=== PATIENT | female | born 1930 | race Caucasian/White ===

== ENCOUNTER 2016-12-02 18:58 | Emergency (ER) | payer OTHER ==
[2016-12-02 19:27] VITALS: BP 174/97; PULSE 70; RESP 16; TEMP 97.9; O2SAT 93
--- NOTE | 2016-12-02 20:14 | EDPHY ---
H & P Time Seen by Provider: 12/02/16 19:41 HPI/ROS: CHIEF COMPLAINT: Right lateral ankle pain HISTORY OF PRESENT ILLNESS: 86-year-old female arrives via private vehicle complaining of acute right lateral ankle pain after she rolled her foot 3 days ago. She is able to bear weight albeit with some pain. Reproducible pain with palpation weight-bearing No instability. Positive ecchymosis. No direct trauma or fall. PHYSICAL EXAM (Prior to examination, patient consented to physical exam, hands were washed and my usual and customary physical exam procedures followed) 1) GENERAL: Well-developed, well-nourished, alert and oriented. Appears to be in no acute distress. 2) HEAD: Normocephalic 3) HEENT: Pupils equal, round, reactive to light bilaterally. 4) LUNGS: Breathing comfortably. 5) MUSCULOSKELETAL: Tender to palpation lateral malleolus with ecchymosis noted at same location. proximal tibia and fibula nontender .5th MT nontender negative Wheeler test, compartments soft 6) SKIN: ecchymosis 7) VASCULAR: DP,PT pulses and cap refill present and brisk DIFFERENTIAL DIAGNOSIS: in no particular order including but not limited to fracture, sprain, compartment syndrome Xray of the right ankle interpreted by myself: no definitive acute osseous abnormality Procedure: Splint A [place] boot splint was applied by ER certified pharmacy technician. After application of the splint I returned and re-examined the patient. The splint was adequately immobilizing the joint and distal to the splint the patient's circulation and sensation were intact. Patient shows no signs of compartment syndrome. Was given orthopedic precautions. Smoking Status: Never smoked Constitutional: Initial Vital Signs Temperature (C) 36.6 C 12/02/16 19:24 Heart Rate 70 12/02/16 19:24 Respiratory Rate 16 12/02/16 19:24 Blood Pressure 174/97 H 12/02/16 19:24 O2 Sat (%) 93 12/02/16 19:24 O2 Delivery Mode Room Air Allergies/Adverse Reactions: Niacin Preparations Allergy (Intermediate, Verified 05/10/15 06:29) Rash Penicillins Allergy (Intermediate, Verified 05/10/15 06:29) Rash codeine phosphate [From Codeine Phosphate Soluble] Allergy (Mild, Verified 05/10 06:29) NAUSEA Sulfa (Sulfonamide Antibiotics) Allergy (Mild, Verified 05/10/15 06:29) SPACEY Home Medications: Medication Instructions Recorded Felodipine [Felodipine Er] 5 mg PO DAILY 12/30/10 Metformin HCl 500 mg PO DAILY06 05/16/11 MDM/Departure - Depart Disposition: Home, Routine, Self-Care Clinical Impression: Right ankle sprain Qualifiers: Encounter type: initial encounter Involved ligament of ankle: unspecified ligament Qualified Code(s): S93.401A - Sprain of unspecified ligament of right ankle, initial encounter Condition: Good Instructions: Ankle Sprain (ED) Additional Instructions: Return to the ER immediately if you experience discoloration, have worsening pain, numbness, tingling, or any other symptoms that concern you. If you received x-rays in the emergency department today, be advised, that ligamentous , tendon, muscular, and other non-bony injury cannot be fully ruled out. Try to keep your affected extremity elevated above the level of your chest, and keep cold packs on the affected area, for the next 48 hours. Referrals: Omari Sandoval MD [Medical Doctor] - 2-3 days, call for appt.
== END 2016-12-02 21:02 | disposition home or self-care (01) ==
DX: S93.401A Sprain of unspecified ligament of right ankle, initial encounter (principal); X58.XXXA Exposure to other specified factors, initial encounter

== ENCOUNTER → 2016-12-20 | Outpatient (CLI) | payer OTHER | LOC: BHFA 13:45 | PROVIDERS: ATTEND Internal Medicine Cardiovascular Disease | DX: I48.0 Paroxysmal atrial fibrillation (principal); E11.9 Type 2 diabetes mellitus without complications; E78.5 Hyperlipidemia, unspecified; I10 Essential (primary) hypertension ==

== ENCOUNTER 2016-12-21 09:19 | Day surgery (SDC) | payer OTHER ==
[2016-12-21] MEDS ORDERED: PROPOFOL 200 MG/20 ML VIAL IVP ONE (09:25)
[2016-12-21] MEDS ORDERED: BENZOCAINE UNIT DOSE SPRAY HURRICAINE MM ONE (09:25)
[2016-12-21] MEDS ORDERED: NS 500 ML IV ONE (09:25)
[2016-12-21] MEDS ORDERED: fentaNYL 100 MCG/2 ML INJ IVP ONE (09:25)
[2016-12-21] MEDS ORDERED: MIDAZOLAM 2 MG/2 ML VIAL IVP ONE (09:25)
--- NOTE | 2016-12-21 09:47 | CPEKG ---
Heart Rate: 102 RR Interval: 588 QRSD Interval: 70 QT Interval: 308 QTC Interval: 402 QRS [place]: 12 T Wave [place]: 198 EKG Severity - ABNORMAL ECG - EKG Impression: ATRIAL FIBRILLATION -- New since May 10, 2015 EKG Impression: Diffuse ST-T wave changes. Consider ischemia. Electronically Signed By: Uli Stroud 21-Dec-2016 12:46:37
[2016-12-21 10:02] LABS: % IMMATURE GRANULYOCYTES 0.3 % (0.0-1.1); ABSOLUTE IMMATURE GRANULOCYTES 0.02 10^3/uL (0.00-0.10); ADD DIFF? NO; ADD MORPH? NO; ADD SCAN? NO; ATYPICAL LYMPHOCYTE FLAG 10 (0-99); FRAGMENT RBC FLAG 0 (0-99); HEMATOCRIT 40.1 % (38.0-47.0); HEMOGLOBIN 13.7 g/dL (12.6-16.3); LEFT SHIFT FLG 0 (0-99); LIPEMIA HEMOLYSIS FLAG 90 (0-99); MEAN CELL HEMOGLOBIN 32.4 pg (27.9-34.1); MEAN CELL HEMOGLOBIN CONCENTR. 34.2 g/dL (32.4-36.7); MEAN CELL VOLUME 94.8 fL (81.5-99.8); MEAN PLATELET VOLUME 9.5 fL (8.7-11.7); PLATELET CLUMPS FLAG 20 (0-99); PLATELET COUNT 240 10^3/uL (150-400); RED BLOOD CELL COUNT 4.23 10^6/uL (4.18-5.33); RED CELL DISTRIBUTION WIDTH 12.3 % (11.5-15.2)
[2016-12-21 10:13] LABS: APTT 30.9 SEC (23.0-38.0); INR 1.46 (0.83-1.16); PROTIME(PATIENT) 17.7 SEC (12.0-15.0)
[2016-12-21] MEDS ORDERED: ATROPINE SULFATE 1 MG/10 ML SYR ONE (10:18)
[2016-12-21 10:25] LABS: ALANINE AMINOTRANSFERASE 41 IU/L (9-52); ALBUMIN 4.3 g/dL (3.5-5.0); ALKALINE PHOSPHATASE 78 IU/L (38-126); ANION GAP 10 mEq/L (8-16); ASPARTATE AMINOTRANSFERASE 32 IU/L (14-46); BILIRUBIN,TOTAL 0.9 mg/dL (0.1-1.4); CALCIUM 9.6 mg/dL (8.5-10.4); CARBON DIOXIDE 27 mEq/l (22-31); CHLORIDE 103 mEq/L (97-110); CREATININE 0.7 mg/dL (0.6-1.0); GLOMERULAR FILTRATION RATE > 60; GLUCOSE 155 mg/dL (70-100); MAGNESIUM 2.1 mg/dL (1.6-2.3); POTASSIUM 4.4 mEq/L (3.5-5.2); SODIUM 140 mEq/L (134-144)
[2016-12-21 10:36] LABS: TROPONIN I < 0.012 ng/mL (0-0.034)
--- NOTE | 2016-12-21 12:23 | CPEKG ---
Heart Rate: 61 RR Interval: 984 P-R Interval: 164 QRSD Interval: 82 QT Interval: 436 QTC Interval: 440 P [place]: 74 QRS [place]: 4 T Wave [place]: 60 EKG Severity - ABNORMAL ECG - EKG Impression: SINUS RHYTHM EKG Impression: ABNORMAL T, CONSIDER ISCHEMIA, LATERAL LEADS EKG Impression: Resolution of atrial fibrillation since December 21, 2016, 9:45 EKG Impression: Possible left atrial abnormality EKG Impression: Some artifact Electronically Signed By: Uli Stroud 21-Dec-2016 12:45:08
--- NOTE | 2016-12-21 12:27 | PDTEE1 ---
PHILLIP Cardioversion Procedure Indications: Atrial Fibrillation Consent: Signed and in Chart Anticoagulation: Xarelto Procedural Details: Pads were placed in anterior-posterior position. PHILLIP probe was advanced and standard images obtained. There is no evidence of left atrial or left atrial appendage thrombus. Synchronized cardioversion attempt #1: 200J Results: Normal sinus rhythm Patient Problems: Problems Problem Status Onset Atrial fibrillation Acute
== END 2016-12-21 14:11 | disposition home or self-care (01) ==
LOC: FCATH 09:19
PROVIDERS: ATTEND Internal Medicine Interventional Cardiology
PROC: 5A2204Z Restoration of Cardiac Rhythm, Single (ICD-10-PCS; principal; 2016-12-21)
PROC: B246ZZ4 Ultrasonography of Right and Left Heart, Transesophageal (ICD-10-PCS; principal; 2016-12-21)
DX: I48.0 Paroxysmal atrial fibrillation (principal); I10 Essential (primary) hypertension; E11.9 Type 2 diabetes mellitus without complications
CPT/HCPCS: J0461; J2704

== ENCOUNTER → 2017-01-08 | Outpatient (CLI) | payer OTHER | LOC: BHFA 11:00 | PROVIDERS: ATTEND Internal Medicine | DX: I48.91 Unspecified atrial fibrillation (principal) ==

== ENCOUNTER 2017-01-24 09:03 | Day surgery (SDC) | payer OTHER ==
[2017-01-24] MEDS ORDERED: NS 500 ML IV ONE (09:07)
[2017-01-24] MEDS ORDERED: fentaNYL 100 MCG/2 ML INJ IVP ONE (09:07)
[2017-01-24] MEDS ORDERED: MIDAZOLAM 2 MG/2 ML VIAL IVP ONE (09:07)
--- NOTE | 2017-01-24 09:31 | CPEKG ---
Heart Rate: 82 RR Interval: 732 QRSD Interval: 86 QT Interval: 364 QTC Interval: 425 QRS [place]: -8 T Wave [place]: 88 EKG Severity - ABNORMAL ECG - EKG Impression: ATRIAL FIBRILLATION EKG Impression: ABNORMAL T, CONSIDER ISCHEMIA, ANT-LAT LEADS Electronically Signed By: Curtis Wheeler 25-Jan-2017 07:14:51
[2017-01-24 10:02] LABS: APTT 28.9 SEC (23.0-38.0); INR 1.65 (0.83-1.16); PROTIME(PATIENT) 19.6 SEC (12.0-15.0)
[2017-01-24 10:04] LABS: ANION GAP 12 mEq/L (8-16); CALCIUM 9.8 mg/dL (8.5-10.4); CARBON DIOXIDE 27 mEq/l (22-31); CHLORIDE 102 mEq/L (97-110); CREATININE 0.8 mg/dL (0.6-1.0); GLOMERULAR FILTRATION RATE > 60; GLUCOSE 173 mg/dL (70-100); MAGNESIUM 1.8 mg/dL (1.6-2.3); POTASSIUM 4.2 mEq/L (3.5-5.2); SODIUM 141 mEq/L (134-144)
[2017-01-24] MEDS ORDERED: PROPOFOL 200 MG/20 ML VIAL ONE (10:32)
[2017-01-24] MEDS ORDERED: LIDOCAINE 2% 100 MG/5 ML SYR ONE (10:32)
--- NOTE | 2017-01-24 10:51 | CPEKG ---
Heart Rate: 54 RR Interval: 1111 P-R Interval: 184 QRSD Interval: 86 QT Interval: 448 QTC Interval: 425 P Moira: 71 QRS Moira: -11 T Wave Moira: 67 EKG Severity - NORMAL ECG - EKG Impression: SINUS RHYTHM Electronically Signed By: Curtis Wheeler 25-Jan-2017 07:14:40
--- NOTE | 2017-01-25 18:12 | EPPROC ---
Electrophysiology Procedure Note: Procedure: CV Indication:AF Procedure: Pt sedated by anesthesia staff. 200J of DCCV used. pt converted to SR. Conclusion: Successful CV Patient Problems: Problems Problem Status Onset Atrial fibrillation Acute Headache Acute
== END 2017-01-24 12:00 | disposition home or self-care (01) ==
LOC: FCATH 09:03
PROVIDERS: ATTEND Internal Medicine Cardiovascular Disease
PROC: 5A2204Z Restoration of Cardiac Rhythm, Single (ICD-10-PCS; principal; 2017-01-24)
DX: I48.1 Persistent atrial fibrillation (principal); I10 Essential (primary) hypertension; E11.9 Type 2 diabetes mellitus without complications
CPT/HCPCS: J2001; J2704

== ENCOUNTER 2017-01-25 10:32 | Emergency (ER) | payer OTHER ==
[2017-01-25 10:40] VITALS: TEMP 98.4
--- NOTE | 2017-01-25 10:56 | EDPHY ---
H & P Stated Complaint: started quetiapine last night, disoriented this AM Time Seen by Provider: 01/25/17 10:56 HPI/ROS: CHIEF COMPLAINT: Headache HISTORY OF PRESENT ILLNESS: Female presenting to the emergency department with her son. Patient states she woke up around 7 o'clock this morning with a 9/10 headache and blurred vision, states has no history of migraines or headaches. Patient states she was seen in Dr. Montanez with Cardiology yesterday for cardioversion for her AFib. Patient states also was placed on a new anxiety medication prescribed on Saturday and she took her 1st dose last night. Patient's son states that her 3 months ago has been having some anxiety issues due to being in the house along with white anxiety medication with prescribed. Patient denies any chest pain or shortness of breath, states her headache has decreased to a 7/10 and her blurred vision is slowly resolving. REVIEW OF SYSTEMS: Constitutional: No fever, no chills. Eyes: No discharge. Blurred vision ENT: No sore throat. Cardiovascular: No chest pain, no palpitations. Respiratory: No cough, no shortness of breath. Gastrointestinal: No abdominal pain, no vomiting. Genitourinary: No urinary discomfort Musculoskeletal: No back pain. Skin: No rashes. Neurological: Headache. No dizziness no lightheadedness Source: Patient, Family - Personal History Current Tetanus/Diphtheria Vaccine: Unsure Current Tetanus Diphtheria and Acellular Pertussis (TDAP): Unsure - Medical/Surgical History Hx Asthma: No Hx Chronic Respiratory Disease: No Hx Diabetes: Yes Hx Cardiac Disease: Yes Hx Renal Disease: No Hx Cirrhosis: No Hx Alcoholism: No Hx HIV/AIDS: No Hx Splenectomy or Spleen Trauma: No Other PMH: hysterectomy, a fib, type 2 diabetes, [place], macular degeneration - Social History Smoking Status: Never smoked - Physical Exam Exam: General Appearance: Alert, no distress. Eyes: Pupils equal and round no pallor or injection. ENT, Mouth: Mucous membranes moist. Respiratory: There are no retractions, lungs are clear to auscultation. Cardiovascular: Regular rate and irregular rhythm. Gastrointestinal: Abdomen is soft and nontender, no masses, bowel sounds normal. Neurological: No focal deficits. No facial drooping. Ambulatory without gait disturbance Skin: Warm and dry, no rashes. Musculoskeletal: Neck is supple nontender. Extremities: symmetrical, full range of motion. Psychiatric: Patient is oriented X 3, there is no agitation. Constitutional: Initial Vital Signs Temperature (C) 36.9 C 01/25/17 10:39 Heart Rate 74 01/25/17 10:39 Respiratory Rate 18 01/25/17 10:39 Blood Pressure 175/83 H 01/25/17 10:39 O2 Sat (%) 92 01/25/17 10:39 O2 Delivery Mode Room Air Allergies/Adverse Reactions: Niacin Preparations Allergy (Intermediate, Verified 05/10/15 06:29) Rash Penicillins Allergy (Intermediate, Verified 05/10/15 06:29) Rash codeine phosphate [From Codeine Phosphate Soluble] Allergy (Mild, Verified 05/10 06:29) NAUSEA Sulfa (Sulfonamide Antibiotics) Allergy (Mild, Verified 05/10/15 06:29) SPACEY Home Medications: Medication Instructions Recorded Felodipine [Felodipine Er] 5 mg PO DAILY 12/30/10 Metformin HCl 1,000 mg PO BID 05/16/11 Aspirin 325 mg PO DAILY 12/21/16 CO Q-10 100 mg PO DAILY 12/21/16 Calcium Carb/D3/Magnesium/Zinc 1 tab PO DAILY 12/21/16 Citalopram 20 mg PO HS 12/21/16 Estrace 12/21/16 Hydrocodon-Acetaminophen 5-325 1 tab PO Q6 PRN 12/21/16 Loperamide 2 mg PO DAILY 12/21/16 Melatonin 3 mg PO HS 12/21/16 Metoprolol Succinate 12.5 mg PO DAILY 12/21/16 Multivitamin 1 tab PO DAILY 12/21/16 [place] 3 Fish Oil Softgel 1 tab PO DAILY 12/21/16 Red Yeast Rice 1,800 mg PO DAILY 12/21/16 Tylenol 1,000 mg PO DAILY 12/21/16 Vitamin D3 2,000 mg PO DAILY 12/21/16 Xarelto 20 mg PO DAILY 12/21/16 Quetiapine Fumarate 01/25/17 Medical Decision Making - Diagnostics Imaging Results: Imaging Impressions Head CT 01/25/17 11:09 Impression: 1. Stable mild age-related atrophy. 2. No hemorrhage, mass effect, or definite acute peripheral infarct. 3. Stable mild microvascular ischemic disease. Findings discussed with Tanisha Kellogg NP at 11:34 hour, 01/25/2017. ED Course/Re-evaluation: Discussed ED plan of care: CT head, CBC, BMP, coags 1130: Spoke with Dr. Steele the negative CT head no acute findings 1230: Discussed all results with patient and her son. The patient will follow up with Dr. De La Rosa office, also stop taking anxiety medication. If any worsening symptoms return to the emergency department 1300: Spoke with Dr. De La Rosa, she would patient in for follow-up either today or Saturday 1300: Discharge home---> stable, AAO x3 not in any distress no focal deficits ambulatory without gait disturbance. Differential Diagnosis: Other differential diagnosis considered but not limited to CVA, SAH and TIA - Data Points Laboratory Results: Laboratory Results 01/25/17 11:36 01/25/17 11:36 01/25/17 01/25/17 01/25/17 11:36 11:36 11:36 WBC 10.53 10^3/uL H 10^3/uL (3.80-9.50) RBC 3.82 10^6/uL L 10^6/uL (4.18-5.33) Hgb 12.4 g/dL L g/dL (12.6-16.3) Hct 37.4 % L % (38.0-47.0) MCV 97.9 fL fL (81.5-99.8) MCH 32.5 pg pg (27.9-34.1) MCHC 33.2 g/dL g/dL (32.4-36.7) RDW 12.4 % % (11.5-15.2) Plt Count 233 10^3/uL 10^3/uL (150-400) MPV 9.6 fL fL (8.7-11.7) Neut % (Auto) 71.0 % % (39.3-74.2) Lymph % (Auto) 22.4 % % (15.0-45.0) Snyder % (Auto) 5.3 % % (4.5-13.0) Eos % (Auto) 0.5 % L % (0.6-7.6) Baso % (Auto) 0.4 % % (0.3-1.7) Nucleat RBC Rel Count 0.0 % % (0.0-0.2) Absolute Neuts (auto) 7.48 10^3/uL H 10^3/uL (1.70-6.50) Absolute Lymphs (auto) 2.36 10^3/uL 10^3/uL (1.00-3.00) Absolute Monos (auto) 0.56 10^3/uL 10^3/uL (0.30-0.80) Absolute Eos (auto) 0.05 10^3/uL 10^3/uL (0.03-0.40) Absolute Basos (auto) 0.04 10^3/uL 10^3/uL (0.02-0.10) Absolute Nucleated RBC 0.00 10^3/uL 10^3/uL (0-0.01) Immature Gran % 0.4 % % (0.0-1.1) Immature Gran # 0.04 10^3/uL 10^3/uL (0.00-0.10) PT 17.7 SEC H SEC (12.0-15.0) INR 1.46 H (0.83-1.16) APTT 27.8 SEC SEC (23.0-38.0) Sodium 137 mEq/L mEq/L (134-144) Potassium 4.3 mEq/L mEq/L (3.5-5.2) Chloride 104 mEq/L mEq/L (97-110) Carbon Dioxide 25 mEq/l mEq/l (22-31) Anion Gap 8 mEq/L mEq/L (8-16) BUN 19 mg/dL mg/dL (7-23) Creatinine 0.7 mg/dL mg/dL (0.6-1.0) Estimated GFR > 60 Glucose 148 mg/dL H mg/dL (70-100) Calcium 9.3 mg/dL mg/dL (8.5-10.4) Departure - Departure Disposition: Home, Routine, Self-Care Clinical Impression: Headache Qualifiers: Headache type: unspecified Headache chronicity pattern: acute headache Intractability: not intractable Qualified Code(s): R51 - Headache Condition: Good Instructions: General Headache (ED) Additional Instructions: Discussed discharge instructions with patient and son 1. Stop taking the new anti anxiety medication that was prescribed to by Dr. De La Rosa 2. Follow up with Dr. De La Rosa office today or Saturday 3. CT scan of head was negative 4. If any worsening symptoms headache returns in and has resolved, altered mental status, unable to walk return to the emergency department Referrals: Lisa De La Rosa MD [Primary Care Provider] - As per Instructions
[2017-01-25 11:45] LABS: % IMMATURE GRANULYOCYTES 0.4 % (0.0-1.1); ABSOLUTE IMMATURE GRANULOCYTES 0.04 10^3/uL (0.00-0.10); ADD DIFF? NO; ADD MORPH? NO; ADD SCAN? NO; ATYPICAL LYMPHOCYTE FLAG 0 (0-99); FRAGMENT RBC FLAG 10 (0-99); HEMATOCRIT 37.4 % (38.0-47.0); HEMOGLOBIN 12.4 g/dL (12.6-16.3); LEFT SHIFT FLG 0 (0-99); LIPEMIA HEMOLYSIS FLAG 80 (0-99); MEAN CELL HEMOGLOBIN 32.5 pg (27.9-34.1); MEAN CELL HEMOGLOBIN CONCENTR. 33.2 g/dL (32.4-36.7); MEAN CELL VOLUME 97.9 fL (81.5-99.8); MEAN PLATELET VOLUME 9.6 fL (8.7-11.7); PLATELET CLUMPS FLAG 10 (0-99); PLATELET COUNT 233 10^3/uL (150-400); RED BLOOD CELL COUNT 3.82 10^6/uL (4.18-5.33); RED CELL DISTRIBUTION WIDTH 12.4 % (11.5-15.2)
[2017-01-25 12:03] LABS: ANION GAP 8 mEq/L (8-16); CALCIUM 9.3 mg/dL (8.5-10.4); CARBON DIOXIDE 25 mEq/l (22-31); CHLORIDE 104 mEq/L (97-110); CREATININE 0.7 mg/dL (0.6-1.0); GLOMERULAR FILTRATION RATE > 60; GLUCOSE 148 mg/dL (70-100); INR 1.46 (0.83-1.16); POTASSIUM 4.3 mEq/L (3.5-5.2); PROTIME(PATIENT) 17.7 SEC (12.0-15.0); SODIUM 137 mEq/L (134-144)
[2017-01-25 12:04] LABS: APTT 27.8 SEC (23.0-38.0)
[2017-01-25 13:07] VITALS: RESP 16
[2017-01-25 13:08] VITALS: BP 187/76; PULSE 71; O2SAT 96
== END 2017-01-25 13:08 | disposition home or self-care (01) ==
DX: R51 Headache (principal); E11.9 Type 2 diabetes mellitus without complications; Z79.82 Long term (current) use of aspirin; Z79.84 Long term (current) use of oral hypoglycemic drugs

== ENCOUNTER 2017-02-03 15:06 | Emergency (ER) | payer OTHER ==
[2017-02-03 15:18] VITALS: BP 142/73; PULSE 72; RESP 16; TEMP 97.9; O2SAT 94
[2017-02-03] MEDS ORDERED: AZITHROMYCIN 250 MG TAB PO ONE (15:39)
--- NOTE | 2017-02-03 15:43 | EDPHY ---
H & P Stated Complaint: R ear pain Time Seen by Provider: 02/03/17 15:24 HPI/ROS: CHIEF COMPLAINT: Right ear pain HISTORY OF PRESENT ILLNESS: The patient is an 87-year-old female who comes to the emergency department concerned for right ear infection. She states that she has had moderate pain there for the last 2 days. No dizziness. No headache. No hearing changes. She is concerned because she has dermatologic procedure scheduled on Saturday and does not want to have a canceled. She is here requesting antibiotics. She has a hearing aid in that ear but no obvious trauma or abrasion. She has not had any drainage. No bony tenderness or swelling. She does have mild constant sinus drainage. REVIEW OF SYSTEMS: Constitutional: denies: chills, fever, recent illness, recent injury EENTM: See HPI Respiratory: denies: cough, shortness of breath Cardiac: denies: chest pain, irregular heart rate, lightheadedness, palpitations Gastrointestinal/Abdominal: denies: abdominal pain, diarrhea, nausea, vomiting, blood streaked stools Genitourinary: denies: dysuria, frequency, hematuria, pain Musculoskeletal: denies: joint pain, muscle pain Skin: denies: lesions, rash, jaundice, bruising Neurological: denies: headache, numbness, paresthesia, tingling, dizziness, weakness Hematologic/Lymphatic: denies: blood clots, easy bleeding, easy bruising Immunologic/allergic: denies: HIV/AIDS, transplant EXAM: GENERAL: Well-appearing, well-nourished and in no acute distress. HEAD: Atraumatic, normocephalic. EYES: Pupils equal round and reactive to light, extraocular movements intact, sclera anicteric, conjunctiva are normal. ENT: TMs with mild erythema and effusion on the right, nares patent, oropharynx clear without exudates. Moist mucous membranes. NECK: Normal range of motion, supple without lymphadenopathy or JVD. LUNGS: Breath sounds clear to auscultation bilaterally and equal. No wheezes rales or rhonchi. HEART: Regular rate and rhythm without murmurs, rubs or gallops. ABDOMEN: Soft, nontender, normoactive bowel sounds. No guarding, no rebound. No masses appreciated. BACK: No CVA tenderness, no spinal tenderness, step-offs or deformities EXTREMITIES: Normal range of motion, no pitting or edema. No clubbing or cyanosis. NEUROLOGICAL: Cranial nerves II through XII grossly intact. Normal speech, normal gait. 5/5 strength, normal movement in all extremities, normal sensation PSYCH: Normal mood, normal affect. SKIN: Warm, dry, normal turgor, no visible rashes or lesions. Source: Patient, Family Exam Limitations: No limitations - Personal History Current Tetanus Diphtheria and Acellular Pertussis (TDAP): Yes - Medical/Surgical History Hx Asthma: No Hx Chronic Respiratory Disease: No Hx Diabetes: Yes Hx Cardiac Disease: Yes Hx Renal Disease: No Hx Cirrhosis: No Hx Alcoholism: No Hx HIV/AIDS: No Hx Splenectomy or Spleen Trauma: No Other PMH: hysterectomy, a fib, type 2 diabetes, [place], macular degeneration, basal cell carcinoma - Family History Significant Family History: No pertinent family hx - Social History Smoking Status: Never smoked Alcohol Use: Sober Drug Use: None Constitutional: Initial Vital Signs Temperature (C) 36.6 C 02/03/17 15:14 Heart Rate 72 02/03/17 15:14 Respiratory Rate 16 02/03/17 15:14 Blood Pressure 142/73 H 02/03/17 15:14 O2 Sat (%) 94 02/03/17 15:14 O2 Delivery Mode Room Air Allergies/Adverse Reactions: Niacin Preparations Allergy (Intermediate, Verified 05/10/15 06:29) Rash Penicillins Allergy (Intermediate, Verified 05/10/15 06:29) Rash codeine phosphate [From Codeine Phosphate Soluble] Allergy (Mild, Verified 05/10 06:29) NAUSEA Sulfa (Sulfonamide Antibiotics) Allergy (Mild, Verified 05/10/15 06:29) SPACEY Home Medications: Medication Instructions Recorded Felodipine [Felodipine Er] 5 mg PO DAILY 12/30/10 Metformin HCl 1,000 mg PO BID 05/16/11 Aspirin 325 mg PO DAILY 12/21/16 CO Q-10 100 mg PO DAILY 12/21/16 Calcium Carb/D3/Magnesium/Zinc 1 tab PO DAILY 12/21/16 Citalopram 20 mg PO HS 12/21/16 Estrace 12/21/16 Hydrocodon-Acetaminophen 5-325 1 tab PO Q6 PRN 12/21/16 Loperamide 2 mg PO DAILY 12/21/16 Melatonin 3 mg PO HS 12/21/16 Metoprolol Succinate 12.5 mg PO DAILY 12/21/16 Multivitamin 1 tab PO DAILY 12/21/16 [place] 3 Fish Oil Softgel 1 tab PO DAILY 12/21/16 Red Yeast Rice 1,800 mg PO DAILY 12/21/16 Tylenol 1,000 mg PO DAILY 12/21/16 Vitamin D3 2,000 mg PO DAILY 12/21/16 Xarelto 20 mg PO DAILY 12/21/16 Quetiapine Fumarate 01/25/17 AZITHROMYCIN [Z-PACK] 250 mg PO DAILY #4 tab 02/03/17 Medical Decision Making ED Course/Re-evaluation: I will start patient on azithromycin. She is concerned about her procedure upcoming. She appears to have a very mild otitis. She and her family agree with this plan. Differential Diagnosis: Partial list of the Differential diagnosis considered include but were not limited to; otitis media, otitis externa, abrasion, trauma and although unlikely based on the history and physical exam, I also considered barotrauma, BPV, tumor. I discussed these differential diagnoses and the plan with the patient as well as the usual and expected course. The patient understands that the diagnosis is provisional and that in medicine we are not always correct and that further workup is often warranted. Usual and customary warnings were given. All of the patient's questions were answered. The patient was instructed to return to the emergency department should the symptoms at all worsen or return, otherwise to followup with the physician as we discussed. - Data Points Medications Given: Discontinued Medications Azithromycin (Zithromax) 500 mg PO EDNOW ONE PRN Reason: Protocol Stop: 02/03/17 15:40 Last Admin: 02/03/17 15:45 Dose: 500 mg Departure - Departure Disposition: Home, Routine, Self-Care Clinical Impression: Otitis media Qualifiers: Otitis media type: suppurative Laterality: right Chronicity: acute Recurrence: not specified as recurrent Spontaneous tympanic membrane rupture: without spontaneous rupture Qualified Code(s): H66.001 - Acute suppurative otitis media without spontaneous rupture of ear drum, right ear Condition: Fair Instructions: Otitis Media (ED) Referrals: [facility] [Other] - As per Instructions Prescriptions: AZITHROMYCIN [Z-PACK] 250 mg PO DAILY #4 tab
== END 2017-02-03 15:55 | disposition home or self-care (01) ==
DX: H66.001 Acute suppurative otitis media without spontaneous rupture of ear drum, right ear (principal); E11.9 Type 2 diabetes mellitus without complications; Z79.01 Long term (current) use of anticoagulants; Z79.82 Long term (current) use of aspirin; Z85.828 Personal history of other malignant neoplasm of skin

== ENCOUNTER → 2017-03-13 | Outpatient (CLI) | payer OTHER | LOC: BHFA 09:15 | PROVIDERS: ATTEND Internal Medicine Cardiovascular Disease | DX: I48.91 Unspecified atrial fibrillation (principal); I10 Essential (primary) hypertension ==

== ENCOUNTER → 2017-04-08 | Outpatient (CLI) | payer OTHER | LOC: BHFA 09:30 | PROVIDERS: ATTEND Internal Medicine | DX: I48.91 Unspecified atrial fibrillation (principal); R06.02 Shortness of breath ==

== ENCOUNTER 2017-04-15 14:07 | Observation (INO) | payer OTHER ==
--- NOTE | 2017-04-15 14:09 | EDPHY ---
HPI/HX/ROS/PE/MDM Narrative: CHIEF COMPLAINT: Stroke alert HPI: This patient is an anticoagulated 87 year old female arriving via EMS presenting with possible stroke symptoms including left-sided facial droop and aphasia onset 17 minutes ago, at 13:50. Per EMS report, the patient was with her son and had severe facial droop and total aphasia. He called 911 immediately. Her son states she passed some "primary tests" upon arrival of EMS crews, but her speech continued to be garbled. Her symptoms have since mostly resolved, but the patient continues to have some left-sided droop. She denies any pain, and states her face feels normal. She feels her difficulty speaking has resolved, and states that earlier, she felt like the left side of her tongue was swollen. Her voice is currently soft and hoarse, but she and her son agree this is normal for her, especially in a stressful situation. She does have type II diabetes, and her son reports her sugars have been high lately. No other recent illness, trauma, or medication changes. REVIEW OF SYSTEMS: Aside from elements discussed in the HPI, a comprehensive 10-point review of systems was reviewed and is negative. PMH: Atrial fibrillation (Xarelto), Diabetes type II (Metformin), macular degeneration, basal cell carcinoma, hysterectomy Other medications: Escitalopram, Lorazepam, Metoprolol SOCIAL HISTORY: Family members at bedside. Lives in [place]. PHYSICAL EXAM: General: Hoarse voice. Patient is alert, in no acute distress. ENT: Eyes are normal to inspection. ENT inspection normal. Neck: Normal inspection. Full range of motion. Respiratory:No respiratory distress. Breath sounds normal bilaterally. Cardiovascular: Regular rate and rhythm. Strong peripheral pulses. Normal cap refill. Abdomen:The abdomen is nontender to palpation. There are no peritoneal signs. There are normal bowel sounds. Back: Normal to inspection. No tenderness to palpation. Skin: Normal color. No rash. Warm and dry. Extremities: Normal appearance. Full range of motion. Neuro: Mild left-sided facial droop. Oriented x3. Normal motor function. Normal sensory function. Portions of this note were transcribed by an ED scribe. I personally performed the history, physical exam, and medical decision making; and confirm the accuracy of the information in the transcribed note. ED Course: 14:07 Met EMS on arrival. 14:[address] . 14:16 I-stat completed. BUN elevated at 28. Glucose elevated at 146. 14:[address] Soliz, radiologist. Negative head CT. 14:[address] Jay, neurologist. Based on patient's anticoagulation status, Dr. Jay recommends admission for continued monitoring. 15:[address] Jay. He assessed the patient by remote video examination. NIH stroke scale score zero. 16:[address] Tena, hospitalist. He accepts admission for this patient. MDM: This patient presents with what sounds like a TIA. Her symptoms have resolved in the ED. Neurology recommends admission for TIA workup. tPA is not indicated secondary to Xarelto use and resolution of symptoms. - Data Points Imaging Results: Imaging Impressions Chest X-Ray 04/15/17 14:09 Impression: Clear lungs. No acute process. Head CT 04/15/17 14:09 Impression: 1. Negative. No acute intracranial hemorrhage or evidence of ischemia. 2. No change since January 2017. Findings discussed with Emergency Department physician, Dr. Sudeep Cisneros, on April 15, 2017 at 1423 hours. Laboratory Results: Laboratory Results 04/15/17 13:50 04/15/17 13:50 04/15/17 04/15/17 04/15/17 14:10 14:07 13:50 WBC RBC Hgb POC Hgb 15.0 gm/dL gm/dL (12.6-16.3) Hct POC Hct 44 % % (38-47) MCV MCH MCHC RDW Plt Count MPV Neut % (Auto) Lymph % (Auto) Gilchrist % (Auto) Eos % (Auto) Baso % (Auto) Nucleat RBC Rel Count Absolute Neuts (auto) Absolute Lymphs (auto) Absolute Monos (auto) Absolute Eos (auto) Absolute Basos (auto) Absolute Nucleated RBC Immature Gran % Immature Gran # PT 15.6 SEC H SEC (12.0-15.0) INR 1.24 H (0.83-1.16) POC Sodium 142 mEq/L mEq/L (134-144) Sodium 143 mEq/L mEq/L (134-144) POC Potassium 3.8 mEq/L mEq/L (3.3-5.0) Potassium 4.1 mEq/L mEq/L (3.5-5.2) POC Chloride 100 mEq/L mEq/L (97-110) Chloride 103 mEq/L mEq/L (97-110) Carbon Dioxide 25 mEq/l mEq/l (22-31) Anion Gap 15 mEq/L mEq/L (8-16) POC BUN 28 mg/dL H mg/dL (7-23) BUN 27 mg/dL H mg/dL (7-23) Creatinine 1.0 mg/dL mg/dL (0.6-1.0) POC Creatinine 1.1 mg/dL H mg/dL (0.6-1.0) Estimated GFR 53 Glucose 138 mg/dL H mg/dL (70-100) POC Glucose 146 mg/dL H mg/dL (70-100) Calcium 10.3 mg/dL mg/dL (8.5-10.4) 04/15/17 13:50 WBC 9.95 10^3/uL H 10^3/uL (3.80-9.50) RBC 4.20 10^6/uL 10^6/uL (4.18-5.33) Hgb 13.6 g/dL g/dL (12.6-16.3) POC Hgb Hct 41.2 % % (38.0-47.0) POC Hct MCV 98.1 fL fL (81.5-99.8) MCH 32.4 pg pg (27.9-34.1) MCHC 33.0 g/dL g/dL (32.4-36.7) RDW 12.4 % % (11.5-15.2) Plt Count 321 10^3/uL 10^3/uL (150-400) MPV 9.6 fL fL (8.7-11.7) Neut % (Auto) 66.9 % % (39.3-74.2) Lymph % (Auto) 24.1 % % (15.0-45.0) Gilchrist % (Auto) 6.9 % % (4.5-13.0) Eos % (Auto) 1.1 % % (0.6-7.6) Baso % (Auto) 0.5 % % (0.3-1.7) Nucleat RBC Rel Count 0.0 % % (0.0-0.2) Absolute Neuts (auto) 6.65 10^3/uL H 10^3/uL (1.70-6.50) Absolute Lymphs (auto) 2.40 10^3/uL 10^3/uL (1.00-3.00) Absolute Monos (auto) 0.69 10^3/uL 10^3/uL (0.30-0.80) Absolute Eos (auto) 0.11 10^3/uL 10^3/uL (0.03-0.40) Absolute Basos (auto) 0.05 10^3/uL 10^3/uL (0.02-0.10) Absolute Nucleated RBC 0.00 10^3/uL 10^3/uL (0-0.01) Immature Gran % 0.5 % % (0.0-1.1) Immature Gran # 0.05 10^3/uL 10^3/uL (0.00-0.10) PT INR POC Sodium Sodium POC Potassium Potassium POC Chloride Chloride Carbon Dioxide Anion Gap POC BUN BUN Creatinine POC Creatinine Estimated GFR Glucose POC Glucose Calcium Point of Care Test Results: 04/15/17 14:07 POC Sodium 142 POC Potassium 3.8 POC Chloride 100 POC BUN 28 H POC Creatinine 1.1 H POC Glucose 146 H General Initial Vital Signs: Initial Vital Signs Temperature (C) 36.6 C 04/15/17 14:19 Heart Rate 87 04/15/17 14:19 Respiratory Rate 20 04/15/17 14:19 Blood Pressure 129/87 H 04/15/17 14:19 O2 Sat (%) 92 04/15/17 14:19 O2 Delivery Mode Room Air Allergies/Adverse Reactions: Niacin Preparations Allergy (Intermediate, Verified 05/10/15 06:29) Rash Penicillins Allergy (Intermediate, Verified 05/10/15 06:29) Rash codeine phosphate [From Codeine Phosphate Soluble] Allergy (Mild, Verified 05/10 06:29) NAUSEA Sulfa (Sulfonamide Antibiotics) Allergy (Mild, Verified 05/10/15 06:29) SPACEY Home Medications: Medication Instructions Recorded Aspirin [Aspirin 81mg (*)] 81 mg PO DAILY 12/21/16 Cholecalciferol Vit D3 [Vitamin D3 2,000 units PO DAILY 12/21/16 2000 units tab (OTC)] Metoprolol Succinate Xr [Toprol Xl 25 mg PO DAILY 12/21/16 25 mg (*)] Multivitamins [Multivitamin (*)] 1 each PO DAILY@12 12/21/16 Rivaroxaban [Xarelto] 20 mg PO HS 12/21/16 C/E/Zn/Cu/OM3/DHA/EPA/LUT/ZEAX 1 each PO BID 04/15/17 [Preservision Areds 2 Softgel] Calcium Carbonate [Oyster Shell 500 mg PO HS 04/15/17 Calcium 500 mg (*)] Escitalopram Oxalate [Lexapro] 10 mg PO HS 04/15/17 Felodipine [Plendil 5 MG (*)] 2.5 mg PO DAILY 04/15/17 Flecainide Acetate [Tambocor] 75 mg PO BID 04/15/17 Herbals/Supplements -Info Only 1 ea PO DAILY 04/15/17 LORazepam [Ativan (*)] 0.25 mg PO BID@12,19 04/15/17 metFORMIN HCL [Glucophage 1000 mg] 1,000 mg PO BIDMEAL 04/15/17 Departure - Departure Disposition: [facility] In[facility] Acute Clinical Impression: Transient ischemic attack Qualifiers: Transient cerebral ischemia type: other Qualified Code(s): G45.8 - Other transient cerebral ischemic attacks and related syndromes Condition: Fair Report Scribed for: Sudeep Cisneros Report Scribed by: Kristen Guillory Date of Report: 04/15/17 Time of Report: 14:09
--- NOTE | 2017-04-15 14:24 | CPEKG ---
Heart Rate: 102 RR Interval: 588 QRSD Interval: 80 QT Interval: 348 QTC Interval: 454 QRS [place]: 2 T Wave [place]: 111 EKG Severity - ABNORMAL ECG - EKG Impression: ATRIAL FIBRILLATION, V-RATE 70-122 EKG Impression: PROBABLE LVH WITH SECONDARY REPOL ABNRM Electronically Signed By: Raffaele Santos 17-Apr-2017 14:26:47
[2017-04-15 14:26] LABS: % IMMATURE GRANULYOCYTES 0.5 % (0.0-1.1); ABSOLUTE IMMATURE GRANULOCYTES 0.05 10^3/uL (0.00-0.10); ADD DIFF? NO; ADD MORPH? NO; ADD SCAN? NO; ATYPICAL LYMPHOCYTE FLAG 10 (0-99); FRAGMENT RBC FLAG 0 (0-99); HEMATOCRIT 41.2 % (38.0-47.0); HEMOGLOBIN 13.6 g/dL (12.6-16.3); LEFT SHIFT FLG 0 (0-99); LIPEMIA HEMOLYSIS FLAG 80 (0-99); MEAN CELL HEMOGLOBIN 32.4 pg (27.9-34.1); MEAN CELL VOLUME 98.1 fL (81.5-99.8); MEAN PLATELET VOLUME 9.6 fL (8.7-11.7); PLATELET CLUMPS FLAG 0 (0-99); PLATELET COUNT 321 10^3/uL (150-400); RED CELL DISTRIBUTION WIDTH 12.4 % (11.5-15.2)
[2017-04-15 14:34] LABS: INR 1.24 (0.83-1.16); PROTIME(PATIENT) 15.6 SEC (12.0-15.0)
[2017-04-15 14:34] LABS: ANION GAP 15 mEq/L (8-16); CALCIUM 10.3 mg/dL (8.5-10.4); CARBON DIOXIDE 25 mEq/l (22-31); CHLORIDE 103 mEq/L (97-110); GLOMERULAR FILTRATION RATE 53; GLUCOSE 138 mg/dL (70-100); POTASSIUM 4.1 mEq/L (3.5-5.2); SODIUM 143 mEq/L (134-144)
[2017-04-15] MEDS ORDERED: ONDANSETRON DISINTEGRATING 4 MG TAB PO PRN (17:09)
[2017-04-15] MEDS ORDERED: ACETAMINOPHEN 325 MG TAB PO PRN (17:09)
[2017-04-15] MEDS ORDERED: ONDANSETRON 4 MG/2 ML VIAL IVP PRN (17:09)
--- NOTE | 2017-04-15 17:44 | GHP ---
[f rep st] HISTORY AND PHYSICAL DATE OF ADMISSION: 04/15/2017 CHIEF COMPLAINT: Stroke. HISTORY OF PRESENT ILLNESS: This is an 87-year-old female who had a sudden onset of left-sided faci al droop and aphasia which began at about 1:00 p.m. today. She was with her son who immediately sabrina led 911. She does have a history of atrial fibrillation and is on Xarelto. She has not missed any doses. In fact, she thinks she may have taken an extra dose last night. She did not have any arm o r leg weakness or numbness. She has never had a stroke before. She underwent a direct current cardioversion on January 25, 2017. She came to the emergency department as a stroke alert. Symptoms were reported to have resolved chirag or to arrival. PAST MEDICAL/SURGICAL HISTORY: 1. Atrial fibrillation, on Xarelto. 2. Diabetes mellitus type 2. 3. Hypertension. 4. Hyperlipidemia. 5. Diverticulitis and diverticulosis. 6. Recurrent UTIs. 7. Osteopenia. MEDICATIONS: Please see medication reconciliation. ALLERGIES: Niacin, penicillins, codeine and sulfa. FAMILY HISTORY: Her son had an [place]. SOCIAL HISTORY: She is recently . Her in October. REVIEW OF SYSTEMS: A 10-point review of systems is conducted and is negative, except per HPI. PHYSICAL EXAM: VITAL SIGNS: Blood pressure 128/68, heart rate 81, respiration rate 20, saturating 94% on room air, temperature 36.7. GENERAL: The patient is a pleasant, elderly appearing female in no acute distress. HEENT: Shows her to be normocephalic, atraumatic. CARDIOVASCULAR: Shows her to be irregularly irregular. There are no murmurs, rubs, or gallops. PULMONARY: Shows her lungs t o be clear to auscultation bilaterally. She is not in any respiratory distress. ABDOMEN: Soft, no ntender, nondistended. SKIN: Shows no rash. : No New. NEUROLOGIC: Shows her to be alert an d oriented x3. She has a mild residual left-sided facial droop that extinguishes when she performs a full smile. Otherwise, cranial nerves 2-12 are intact. Motor is intact in her upper and lower ex tremities. Sensation to light touch is intact in upper and lower extremities. She has no pronator drift. She is able to repeat simple phrases. PSYCHIATRIC: Shows normal mood and affect. LABS: White count is 9.9. INR is 1.2. Creatinine is 1.0. Calcium is 10.3. DATA: 1. I reviewed her head CT. This shows nothing acute. No hemorrhage. 2. ECG, which I personally viewed and interpreted, shows atrial fibrillation. She has T-wave inver sions in the leads V3 through V5. These existed in her previous EKG. 3. Echocardiogram relatively unremarkable. IMPRESSION AND PLAN: An 87-year-old female with a transient ischemic attack versus stroke. 1. Transient ischemic attack versus stroke. I am unclear if she has any residual deficits, though possibly mild left-sided facial droop. She is on Xarelto. Will order a transthoracic echocardiogra m, duplex ultrasounds of her carotids. Will also order an MRI of her brain, given the question of r esidual deficits. Regardless, she is out of the window at this point for tPA and she is already ant icoagulated. This syndrome is not consistent with a large vessel occlusion. I wonder if this may b e considered as Xarelto failure. Will discuss with Neurology tomorrow whether switching her anticoa gulants would be appropriate. 2. Atrial fibrillation. She is on flecainide as well as Xarelto. Ongoing anticoagulation as above . 3. Diabetes mellitus. She is on metformin. Will hold this for the short term. 4. Hypertension. 5. Hyperlipidemia. CODE STATUS: She would like to be a full code. /[id number]/MODL
[2017-04-15] MEDS ORDERED: NON-FORMULARY NEW DRUG (Metformin Hcl [Glucophage 1000 Mg] 1,000 MG) PO SCH (18:00)
[2017-04-15] MEDS: metFORMIN HCL 500 MG TAB PO SCH (18:46)
[2017-04-15 19:28] LABS: COLOR YELLOW; LEUKOCYTE ESTERASE,URINE NEGATIVE (NEGATIVE); NITRITE,URINE NEGATIVE (NEGATIVE)
[2017-04-15 19:36] LABS: MUCUS TRACE /lpf (NONE-1+)
[2017-04-15] MEDS ORDERED: D5W 1/2 NS W/ 20 KCl/L 1,000 ML IV SCH (20:30)
[2017-04-15] MEDS ORDERED: CALCIUM CARBONATE 500 MG TAB PO SCH (21:00)
[2017-04-15] MEDS ORDERED: RIVAROXABAN 20 MG TAB PO SCH (21:00)
[2017-04-15] MEDS ORDERED: ESCITALOPRAM OXALATE 10 MG TAB PO SCH (21:00)
[2017-04-15] MEDS: PRESERVISION AREDS2 FORMULA EYE VIT 1 EACH PO SCH (21:02)
[2017-04-15] MEDS: FLECAINIDE ACETATE 100 MG TAB PO SCH (21:02)
[2017-04-16 05:22] LABS: % IMMATURE GRANULYOCYTES 0.3 % (0.0-1.1); ABSOLUTE IMMATURE GRANULOCYTES 0.03 10^3/uL (0.00-0.10); ADD DIFF? NO; ADD MORPH? NO; ADD SCAN? NO; ATYPICAL LYMPHOCYTE FLAG 0 (0-99); FRAGMENT RBC FLAG 0 (0-99); HEMATOCRIT 37.9 % (38.0-47.0); HEMOGLOBIN 12.7 g/dL (12.6-16.3); LEFT SHIFT FLG 0 (0-99); LIPEMIA HEMOLYSIS FLAG 80 (0-99); MEAN CELL HEMOGLOBIN 32.6 pg (27.9-34.1); MEAN CELL HEMOGLOBIN CONCENTR. 33.5 g/dL (32.4-36.7); MEAN CELL VOLUME 97.2 fL (81.5-99.8); MEAN PLATELET VOLUME 9.4 fL (8.7-11.7); PLATELET CLUMPS FLAG 10 (0-99); PLATELET COUNT 262 10^3/uL (150-400); RED CELL DISTRIBUTION WIDTH 12.4 % (11.5-15.2)
[2017-04-16 05:44] LABS: ALANINE AMINOTRANSFERASE 51 IU/L (9-52); ALBUMIN 3.6 g/dL (3.5-5.0); ALKALINE PHOSPHATASE 62 IU/L (38-126); ANION GAP 9 mEq/L (8-16); ASPARTATE AMINOTRANSFERASE 30 IU/L (14-46); BILIRUBIN,TOTAL 0.8 mg/dL (0.1-1.4); CALCIUM 9.3 mg/dL (8.5-10.4); CARBON DIOXIDE 25 mEq/l (22-31); CHLORIDE 107 mEq/L (97-110); CHOLESTEROL 144 mg/dL (140-220); CHOLESTEROL/HDL RATIO 2.36 RATIO (1.00-4.44); CREATININE 0.7 mg/dL (0.6-1.0); GLOMERULAR FILTRATION RATE > 60; GLUCOSE 203 mg/dL (70-100); HIGH DENSITY LIPOPROTEIN 61 mg/dL (40-85); LDL/HDL RATIO 1.03 RATIO (1.00-3.22); LOW DENSITY LIPOPROTEIN 63 mg/dL (80-100); NON-HIGH DENSITY LIPOPROTEIN 83 mg/dL (90-129); SODIUM 141 mEq/L (134-144); TRIGLYCERIDE 103 mg/dL (35-135); VERY LOW DENSITY LIPOPROTEINS 20 mg/dL (8-25)
[2017-04-16] MEDS ORDERED: FELODIPINE 2.5 MG PO SCH (09:00)
[2017-04-16] MEDS ORDERED: METOPROLOL SUCCINATE XR 25 MG TAB PO SCH (09:00)
[2017-04-16] MEDS ORDERED: FELODIPINE 5 MG TAB.ER PO SCH (09:00)
[2017-04-16] MEDS ORDERED: ASPIRIN 81 MG CHEWABLE TAB PO SCH (09:00)
[2017-04-16] MEDS ORDERED: CHOLECALCIFEROL VIT D3 2,000 UNITS TAB/CAP PO SCH (09:00)
[2017-04-16] MEDS: metFORMIN HCL 500 MG TAB PO SCH (09:59)
--- NOTE | 2017-04-16 09:59 | PDCONSULT ---
[facility] Note: HOSPITAL NEUROLOGY CONSULT REQUESTING: Dwain Watson MD REASON: TIA HPI: 87 year old right-handed woman with a history of afib, HTN, DM2 who presented to our ED yesterday due to transient aphasia. Patient was at home and developed abrupt onset difficulty getting words out - she states she knew what she wanted to say but couldn't say it. SYmptoms lasted about 15 mins and resolved. There was perhaps indication of left facial drooping by the ED, but patient denies noting this. She denied any visual disturbance, weakness, sensory loss, vestibular symptoms. No gait change. No BLEDSOE. No recent illness. She take rivaroxaban for anticoagulation and states she has not missed any doses. No prior history of stroke TIA. Today she feels back to baseline. ROS: As per the HPI, otherwise a complete 12 point ROS was performed and is negative ALLERGIES AND MEDS: As recorded in the EMR - reviewed and reconciled PFSH: As per the intake H&P by Dr. Watson from yesterday EXAM: VS reviewed in EMR GEN: thin elderly woman laying in NAD HEENT: NCAT, sclera anicteric, conjunctiva not injected, MMM, oropharynx clear, no scalp tenderness NECK: supple, nontender, no meningismus CV: RRR s1 s2 wo m/r/c/g. Carotid pulses 2+ wo bruit NEURO: MS: awake, alert, oriented to all spheres. Speech hypophonic and a bit bradykinetic. No language disturbance. Follows commands. Attends to both sides. Recent/remote memory grossly intact. Mood euthymic. Good fund of knowledge. CN: pupils 4mm round and reactive. Fundi with sharp discs. VFF. Primary gaze centered. Full ocular motility. Facial sensation preserved. Face symmetric. Hearing grossly intact to finger rub. Palatoglossal movements intact. Shoulder shrug and head turn strong. MOTOR: reduced bulk throughout, normal tone. No adventitial movements. Full power throughout. SENSORY: intact LT/PP throughout and symmetric. No extinction. COORD: no ataxia FN/HS. Anastacio symmetrically bradykinetic. REFLEX: plantars equivocal No clonus. Absent ankle jerks, other DTRS 2/4. GAIT: deferred to PT safety eval DATA REVIEW: Labs reviewed in EMR Carotid U/S - less than 50% stenosis in the BICAs LDL 63 A1c pending TTE pending PERSONALLY INTERPRETED RESULTS AND DATA: MRI brain wo - area of acute infarction in the cortical/subcortical regions of the high right occipital lobe. IMPRESSION AND RECOMMENDATIONS: // ACUTE ISCHEMIC STROKE // AFIB // HTN // DM2 - UNKNOWN CONTROL Patient with transient episode of aphasia, but with evidence of infarction in the right occipital lobe. She had no visual complaints and full VF today on exam. Suspect she likely had embolic shower with transient ischemia to a language area , but with silent cerebral infarction in the occipital lobe. Discussed how anticoagulation is the best means of preventing cardioembolic stroke, but is not 100% perfect in preventing stroke. Given the solitary area of posterior circulation ischemic, will obtain CTA head/ neck to evaluate for any focal vascular disease. CTA head/neck Continue anticoagulation - she is on antiplatelet as well for unknown reason, but from stroke perspective only need anticoagulation LDL at goal < 70 - would cont statin for pleiotropic effect nonetheless Goal A1c < 6.5 Goal normotension PT/OT/MANAGER STONE consults Stroke education - personally focused on activating EMS for any stroke-like symptoms
[2017-04-16] MEDS: PRESERVISION AREDS2 FORMULA EYE VIT 1 EACH PO SCH (10:59)
[2017-04-16] MEDS: FLECAINIDE ACETATE 100 MG TAB PO SCH (11:00)
[2017-04-16] MEDS ORDERED: IOPAMIDOL (ISOVUE 370) 100 ML BTL IV ONE (11:21)
--- NOTE | 2017-04-16 11:41 | ECHO ---
[id number] + + [id number] : : [place] [address] : : [phone] + Adult Echocardiographic Report + --+ :Name: SAPNA CAMPBELL MStudy Date: 04/16/2017 11:22 AM : : Hospital Admission Number: [id number] Location: 3 61: :: 1930 Gender: Female Height: 66 in : :Age: 87 yrs Race: WH Weight: 113 lb : :Reason For Study: Eval LV Fx : : BSA: 1.6 meters2 : :History: TIA, Slurred Speech : + --+ MMode/2D Measurements \T\ Calculations IVSd: 0.80 cm LVIDd: 3.8 cm FS: 33.1 % Ao root diam: 2.3 cm LVPWd: 0.97 cm LVIDs: 2.6 cm EDV(Teich): 63.0 ml ACS: 1.5 cm ESV(Teich): 23.7 ml EF(Teich): 62.4 % Normal Measurement Values: + + :LVIDd (3.5-5.7cm) IVSd (0.6-1.1cm) LVPWd (0.6-1.1cm) Aortic Root (2.0-3.7cm)Left Atrium (1.5-4.0cm): :LV Vol(d) (76-115ml) LV Vol(s) (29-48ml) Ejec Fraction (50-65%)PV Vinnie (0.6- 1.2m/s) TV Vinnie (0.4-1.0m/s) : :MV E Vinnie (0.8-1.0m/s)MV A Vinnie (0.3-1.0m/s)LVOT Vinnie (0.7-1.2m/s) Asc Ao Ivnnie ( 0.9-1.8m/s) : + + Doppler Measurements \T\ Calculations MV E max vinnie: Ao V2 max: LV V1 max: PA V2 max: 92.8 cm/sec 81.4 cm/sec 58.2 cm/sec 71.9 cm/sec Ao max PG: LV V1 max PG: PA max P.7 mmHg 1.4 mmHg 2.1 mmHg TR max vinnie: 259.3 cm/sec TR max P.9 mmHg RAP systole: 5.0 mmHg RVSP(TR): 31.9 mmHg Left Ventricle The left ventricle is normal in size. There is normal left ventricular wall thickness. The left ventricular ejection fraction is normal. There is Doppler evidence for diastolic dysfunction. The rhythm is atrial fibrillation. Ejection Fraction = 63%. The left ventricular wall motion is normal. Right Ventricle The right ventricle is normal in size and function. Atria The left atrial size is normal. Right atrial size is normal. Mitral Valve There is mild mitral annular calcification. There is no evidence of mitral valve prolapse. There is no mitral valve stenosis. There is no mitral regurgitation noted. Tricuspid Valve Normal tricuspid valve. There is mild tricuspid regurgitation. Right ventricular systolic pressure is 46mmHg. There is Doppler evidence for mild pulmonary hypertension. Aortic Valve There is mild aortic valve calcification. There is no aortic stenosis. There is no aortic insufficiency. Pulmonic Valve The pulmonic valve is normal in structure and function. There is no pulmonic valvular regurgitation. Great Vessels The aortic root is normal size. Pericardium/Pleural There is no pericardial effusion. Conclusion A complete two-dimensional transthoracic echocardiogram was performed (2D, M-mode, Doppler and color flow Doppler). The left ventricular ejection fraction is normal. There is Doppler evidence for diastolic dysfunction. The rhythm is atrial fibrillation. Ejection Fraction = 63%. The left ventricular wall motion is normal. The right ventricle is normal in size and function. The left atrial size is normal. There is mild mitral annular calcification. There is mild tricuspid regurgitation. Right ventricular systolic pressure is 46mmHg. There is Doppler evidence for mild pulmonary hypertension. There is mild aortic valve calcification. There is no pericardial effusion. Final Reading Physician: Raffaele Sarah Rosado signed on 04/16/2017 11:40 AM Ordering Physician: Dwain Watson Performed By: Mark Allen RDCS
[2017-04-16] MEDS ORDERED: LORazepam 0.5 MG TAB PO SCH (12:00)
[2017-04-16 12:07] VITALS: PULSE 87; O2SAT 96
[2017-04-16 12:49] LABS: HEMOGLOBIN A1C 7.2 % (4.0-6.0)
--- NOTE | 2017-04-16 12:56 | WOCRNPDOC ---
WOCRN Advanced Assessment Note - Skin Integrity Problem, Advanced Assess Right Buttock Dressing Type: Allevyn Life Lakisha Wound Tissue: Blanching, Erythema Wound Bed Color: Yellow Wound Bed Constitution: Dried Exudate Site Measurement - Head-to-Toe Length X Width X Depth (cm): 1x0.6xdried exudate/ scab Skin Integrity Problem Comment: Not pressure related. Etiology is moisture and friction. All area including coccyx blanching. Encouraged patient to lift when transferrring rather than sliding. Will initiate dimethicone cream which will help area. Wound care will sign off. Please reconsult prn.
[2017-04-16 16:24] VITALS: BP 120/77; RESP 16; TEMP 97.4
--- NOTE | 2017-04-16 20:04 | GDS ---
[f rep st] DISCHARGE SUMMARY ALL DIAGNOSES: 1. Acute cerebrovascular accident. 2. Transient ischemic attack. 3. Atrial fibrillation on anticoagulation. 4. Chronic kidney disease, baseline creatinine about 1.1. 5. Diabetes mellitus type 2. 6. Hypertension. 7. Hyperlipidemia. HOSPITAL COURSE: An 87-year-old female, who presented with aphasia as well as left-sided facial abel op. Her symptoms resolved relatively quickly. Workup included a brain MRI, which showed a right oc cipital lobe CVA. Notably, she had no visual field cuts and her previous deficits do not seem to co rrelate to this. Echocardiogram showed normal EF. No source of embolus identified. Head and neck CT angiogram showed likely recanalization of a thrombus in the right posterior cerebral artery corre lating to the area of ischemia seen on her MRI. Because of this, as well as her other symptoms, the likely explanation is an embolic stroke in the posterior as well as the anterior circulation, fortu nately the anterior circulation would be considered more of a TIA without any residual deficits or i maging findings. My belief is that the right occipital lobe area of ischemia seen on MRI was silent . This was all discussed with Dr. Ingram. Plan will be to continue her Xarelto (I discussed that risks and benefits of changing her anticoagulant with Dr. Ingram, and he feels that the best course of action is to continue this). She is currently on aspirin as recommended by her network systems integrator. I recommended that she stop red yeast rice and I have given her low-dose pravastatin. She will discu ss her mildly elevated A1c with her primary care physician, Dr. De La Rosa. I have recommended that e hold metformin for 2 days as she received IV contrast. She and her son are considering looking into assisted living facilities. I think that this is a wis e course of action. She was offered home care, however, they declined as she is not homebound. Randolph chris, she was seen by PT and OT, who feel that she is safe to be discharged home. I discussed all this with her and her son. /[id number]/MODL
== END 2017-04-16 19:01 | disposition home or self-care (01) ==
LOC: EDUNIT# → F3N 17:20
PROVIDERS: ADMIT Family Medicine; ATTEND Family Medicine
DX: G45.9 Transient cerebral ischemic attack, unspecified (principal); I10 Essential (primary) hypertension; L53.9 Erythematous condition, unspecified; E78.5 Hyperlipidemia, unspecified; E11.9 Type 2 diabetes mellitus without complications; I48.91 Unspecified atrial fibrillation; Z79.01 Long term (current) use of anticoagulants; Z88.0 Allergy status to penicillin; Z88.2 Allergy status to sulfonamides
CPT/HCPCS: 70450; 70496; 70498; 70551; 71010; 92610; 93005; 93306; 93880; 97161; 97165; G0378; G8978; G8979; G8987; G8988; G8996; G8997; G8998; Q9967; 82947-QW

== ENCOUNTER → 2017-04-26 | Outpatient (CLI) | payer OTHER | LOC: BHFA 11:00 | PROVIDERS: ATTEND Internal Medicine Cardiovascular Disease | DX: I48.91 Unspecified atrial fibrillation (principal) ==

== ENCOUNTER 2017-04-28 00:54 | Inpatient (IN) | payer OTHER ==
[2017-04-28] MEDS ORDERED: PANTOPRAZOLE SODIUM 40 MG in NS 100 ML IV ONE (01:18)
--- NOTE | 2017-04-28 01:19 | EDPHY ---
H & P Stated Complaint: pt says she was woken up by heartburn, advised by planning division superintendent rn to come in Time Seen by Provider: 04/28/17 01:09 HPI/ROS: Chief Complaint: Epigastric pain HPI: 87-year-old woman with a history of TIA and diabetes and atrial fibrillation woke this morning with epigastric pain. At worst is an 8/10. Her son gave her 3 times with some minimal relief. Now discomfort is down to a 2 in 10. She was recently admitted here for a TIA 2 weeks ago. No new numbness weakness. No fevers or chills. No substernal chest pain. No shortness of breath. No nausea or vomiting. Denies any black stools. She is on Xarelto. ROS: 10 point Review of Systems is negative except as noted in the HPI. PMH: Diabetes, TIA, atrial fibrillation Social History: No smoking, no alcohol, no recreational drug use Family History: non-contributory Physical Exam: Gen: Awake, Alert, No Distress HEENT: Nose: no rhinorrhea Eyes: PERRLA, EOMI Mouth: Moist mucosa Neck: Supple, no JVD Chest: nontender, lungs clear to auscultation Heart: S1, S2 normal, no murmur Abd: Soft, mild epigastric tenderness, no guarding Back: no CVA tenderness, no midline tenderness Ext: no edema, non-tender Skin: no rash Neuro: CN II-XII intact, Sensation grossly intact, Strength 5/5 in bilateral upper and lower extremities - Medical/Surgical History Hx Asthma: No Hx Chronic Respiratory Disease: No Hx Diabetes: Yes Hx Cardiac Disease: Yes Hx Renal Disease: No Hx Cirrhosis: No Hx Alcoholism: No Hx HIV/AIDS: No Hx Splenectomy or Spleen Trauma: No Other PMH: hysterectomy, a fib, type 2 diabetes, [place], macular degeneration, basal cell carcinoma, tia - , cholecystectomy - Social History Smoking Status: Never smoked Constitutional: Initial Vital Signs Temperature (C) 36.4 C 04/28/17 00:58 Heart Rate 66 04/28/17 00:58 Respiratory Rate 16 04/28/17 00:58 Blood Pressure 163/93 H 04/28/17 00:58 O2 Sat (%) 96 04/28/17 00:58 O2 Delivery Mode Room Air Allergies/Adverse Reactions: Niacin Preparations Allergy (Intermediate, Verified 04/28/17 01:02) Rash Penicillins Allergy (Intermediate, Verified 04/28/17 01:02) Rash codeine phosphate [From Codeine Phosphate Soluble] Allergy (Mild, Verified 04/28 01:02) NAUSEA Sulfa (Sulfonamide Antibiotics) Allergy (Mild, Verified 04/28/17 01:02) SPACEY Home Medications: Medication Instructions Recorded Aspirin [Aspirin 81mg (*)] 81 mg PO DAILY 12/21/16 Cholecalciferol Vit D3 [Vitamin D3 2,000 units PO DAILY 12/21/16 2000 units tab (OTC)] Metoprolol Succinate Xr [Toprol Xl 25 mg PO DAILY 12/21/16 25 mg (*)] Multivitamins [Multivitamin (*)] 1 each PO DAILY@12 12/21/16 Rivaroxaban [Xarelto] 20 mg PO HS 12/21/16 C/E/Zn/Cu/OM3/DHA/EPA/LUT/ZEAX 1 each PO BID 04/15/17 [Preservision Areds 2 Softgel] Calcium Carbonate [Oyster Shell 500 mg PO HS 04/15/17 Calcium 500 mg (*)] Escitalopram Oxalate [Lexapro 10 10 mg PO HS 04/15/17 MG] Felodipine [Plendil 5 MG (*)] 2.5 mg PO DAILY 04/15/17 Flecainide Acetate [Tambocor] 75 mg PO BID 04/15/17 Herbals/Supplements -Info Only 1 ea PO DAILY 04/15/17 LORazepam [Ativan (*)] 0.25 mg PO BID@,04/15/17 metFORMIN HCL [Glucophage 1000 mg] 1,000 mg PO BIDMEAL 04/15/17 Escitalopram Oxalate [Lexapro 10 10 mg PO HS #30 tab 04/16/17 MG] Pravastatin Sodium [Pravachol] 5 mg PO HS #15 tab 04/16/17 Medical Decision Making - Diagnostics EKG Interpretation: ECG time 1:24 a.m. sinus rhythm with a rate of 65 normal axis, that she has a first-degree AV block. She has T-wave inversions in the lateral leads. These are unchanged from an ECG on the 15 April 2017. Imaging Results: No acute disease on chest x-ray. Imaging: I viewed and interpreted images myself ED Course/Re-evaluation: 87-year-old with epigastric pain this morning. Minimal relief with antacids and Protonix. Old T-wave inversions on ECG but these are not acute. Troponin is negative. Given her age and risk factors this could certainly be an atypical presentation of acute coronary syndrome. Will admit for serial troponins and ECGs. I have discussed with Dr. Willett, hospitalist. - Data Points Laboratory Results: Laboratory Results 04/28/17 01:24 04/28/17 01:24 04/28/17 04/28/17 01:24 01:24 WBC 9.62 10^3/uL H 10^3/uL (3.80-9.50) RBC 3.72 10^6/uL L 10^6/uL (4.18-5.33) Hgb 12.1 g/dL L g/dL (12.6-16.3) Hct 37.0 % L % (38.0-47.0) MCV 99.5 fL fL (81.5-99.8) MCH 32.5 pg pg (27.9-34.1) MCHC 32.7 g/dL g/dL (32.4-36.7) RDW 12.4 % % (11.5-15.2) Plt Count 224 10^3/uL 10^3/uL (150-400) MPV 10.0 fL fL (8.7-11.7) Neut % (Auto) 56.4 % % (39.3-74.2) Lymph % (Auto) 34.4 % % (15.0-45.0) [place] % (Auto) 6.8 % % (4.5-13.0) Eos % (Auto) 1.6 % % (0.6-7.6) Baso % (Auto) 0.5 % % (0.3-1.7) Nucleat RBC Rel Count 0.0 % % (0.0-0.2) Absolute Neuts (auto) 5.43 10^3/uL 10^3/uL (1.70-6.50) Absolute Lymphs (auto) 3.31 10^3/uL H 10^3/uL (1.00-3.00) Absolute Monos (auto) 0.65 10^3/uL 10^3/uL (0.30-0.80) Absolute Eos (auto) 0.15 10^3/uL 10^3/uL (0.03-0.40) Absolute Basos (auto) 0.05 10^3/uL 10^3/uL (0.02-0.10) Absolute Nucleated RBC 0.00 10^3/uL 10^3/uL (0-0.01) Immature Gran % 0.3 % % (0.0-1.1) Immature Gran # 0.03 10^3/uL 10^3/uL (0.00-0.10) Sodium 141 mEq/L mEq/L (134-144) Potassium 4.0 mEq/L mEq/L (3.5-5.2) Chloride 103 mEq/L mEq/L (97-110) Carbon Dioxide 26 mEq/l mEq/l (22-31) Anion Gap 12 mEq/L mEq/L (8-16) BUN 25 mg/dL H mg/dL (7-23) Creatinine 0.9 mg/dL mg/dL (0.6-1.0) Estimated GFR 59 Glucose 118 mg/dL H mg/dL (70-100) Calcium 10.0 mg/dL mg/dL (8.5-10.4) Total Bilirubin 0.4 mg/dL mg/dL (0.1-1.4) Conjugated Bilirubin 0.3 mg/dL mg/dL (0.0-0.5) Unconjugated Bilirubin 0.1 mg/dL mg/dL (0.0-1.1) AST 33 IU/L IU/L (14-46) ALT 46 IU/L IU/L (9-52) Alkaline Phosphatase 62 IU/L IU/L (38-126) Troponin I < 0.012 ng/mL ng/mL (0-0.034) Total Protein 6.3 g/dL g/dL (6.3-8.2) Albumin 3.9 g/dL g/dL (3.5-5.0) Lipase 286.0 IU/L IU/L (23-300) Medications Given: Discontinued Medications Al Hydroxide/Mg Hydroxide (Maalox Susp) 30 ml PO ONCE ONE Stop: 04/28/17 02:12 Last Admin: 04/28/17 02:14 Dose: 30 ml Pantoprazole Sodium 40 mg/ (Sodium Chloride) 100 mls @ 200 mls/hr IV EDNOW ONE Stop: 04/28/17 01:47 Last Admin: 04/28/17 02:08 Dose: 100 mls Lidocaine (Lidocaine 2% Viscous) 15 ml PO ONCE ONE Stop: 04/28/17 02:12 Last Admin: 04/28/17 02:14 Dose: 15 ml Departure - Departure Disposition: [facility] Inpatient Acute Clinical Impression: Epigastric pain Condition: Fair
--- NOTE | 2017-04-28 01:31 | CPEKG ---
Heart Rate: 65 RR Interval: 923 P-R Interval: 224 QRSD Interval: 88 QT Interval: 424 QTC Interval: 441 P [place]: 64 QRS [place]: -9 T Wave [place]: 89 EKG Severity - ABNORMAL ECG - EKG Impression: SINUS ARRHYTHMIA, RATE 56-77 EKG Impression: FIRST DEGREE AV BLOCK EKG Impression: PROBABLE LEFT ATRIAL ABNORMALITY EKG Impression: NONSPECIFIC T ABNORMALITIES, ANT-LAT LEADS Electronically Signed By: Devon Edwards 29-Apr-2017 05:31:51
[2017-04-28 01:39] LABS: % IMMATURE GRANULYOCYTES 0.3 % (0.0-1.1); ABSOLUTE IMMATURE GRANULOCYTES 0.03 10^3/uL (0.00-0.10); ADD DIFF? NO; ADD MORPH? NO; ADD SCAN? NO; ATYPICAL LYMPHOCYTE FLAG 0 (0-99); FRAGMENT RBC FLAG 0 (0-99); HEMOGLOBIN 12.1 g/dL (12.6-16.3); LEFT SHIFT FLG 0 (0-99); LIPEMIA HEMOLYSIS FLAG 80 (0-99); MEAN CELL HEMOGLOBIN 32.5 pg (27.9-34.1); MEAN CELL HEMOGLOBIN CONCENTR. 32.7 g/dL (32.4-36.7); MEAN CELL VOLUME 99.5 fL (81.5-99.8); PLATELET CLUMPS FLAG 0 (0-99); PLATELET COUNT 224 10^3/uL (150-400); RED BLOOD CELL COUNT 3.72 10^6/uL (4.18-5.33); RED CELL DISTRIBUTION WIDTH 12.4 % (11.5-15.2)
[2017-04-28 01:56] LABS: ALANINE AMINOTRANSFERASE 46 IU/L (9-52); ALBUMIN 3.9 g/dL (3.5-5.0); ALKALINE PHOSPHATASE 62 IU/L (38-126); ANION GAP 12 mEq/L (8-16); ASPARTATE AMINOTRANSFERASE 33 IU/L (14-46); BILIRUBIN,TOTAL 0.4 mg/dL (0.1-1.4); BILIRUBIN-CONJUGATED 0.3 mg/dL (0.0-0.5); BILIRUBIN-UNCONJUGATED 0.1 mg/dL (0.0-1.1); CARBON DIOXIDE 26 mEq/l (22-31); CHLORIDE 103 mEq/L (97-110); CREATININE 0.9 mg/dL (0.6-1.0); GLOMERULAR FILTRATION RATE 59; GLUCOSE 118 mg/dL (70-100); SODIUM 141 mEq/L (134-144); TOTAL PROTEIN 6.3 g/dL (6.3-8.2)
[2017-04-28 02:07] LABS: TROPONIN I < 0.012 ng/mL (0-0.034)
[2017-04-28] MEDS ORDERED: MAG HYDROX/AL HYDROX/SIMETH 30 ML UDCUP PO ONE ×2 (02:11→12:30)
[2017-04-28] MEDS ORDERED: MAG HYDROX/AL HYDROX/SIMETH 30 ML UDCUP ONE (02:11)
[2017-04-28] MEDS ORDERED: LIDOCAINE 2% VISCOUS 15 ML UDCUP PO ONE ×2 (02:11→12:30)
[2017-04-28] MEDS ORDERED: ONDANSETRON 4 MG/2 ML VIAL IVP PRN (03:54)
[2017-04-28] MEDS ORDERED: ONDANSETRON DISINTEGRATING 4 MG TAB PO PRN (03:54)
[2017-04-28] MEDS ORDERED: ACETAMINOPHEN 325 MG TAB PO PRN (03:54)
--- NOTE | 2017-04-28 04:04 | PDGENHP ---
History and Physical - Chief Complaint Abdominal pain - History of Present Illness 87 yo F w/ hx of Afib and recent TIA presenting with acute onset abdominal pain. Patient reports being woken up from sleep with 9/10 epi-gastric pain. She denies SOB, diaphoresis, or radiation of the pain. The pain improved when her son gave her 2 Tums tabs. They called the patient's PCP office who recommended she come in to the ED for evaluation. She has no prior CAD hx but her son did have several stents placed at age 49. She denies infectious symptoms including fever, chills, and diarrhea. She is currently chest pain free. History Information - Allergies/Home Medication List Allergies/Adverse Reactions: Niacin Preparations Allergy (Intermediate, Verified 04/28/17 01:02) Rash Penicillins Allergy (Intermediate, Verified 04/28/17 01:02) Rash codeine phosphate [From Codeine Phosphate Soluble] Allergy (Mild, Verified 04/28 01:02) NAUSEA Sulfa (Sulfonamide Antibiotics) Allergy (Mild, Verified 04/28/17 01:02) SPACEY Home Medications: Aspirin [Aspirin 81mg (*)] 81 mg PO DAILY 12/21/16 [Last Taken 04/15/17] Cholecalciferol Vit D3 [Vitamin D3 2000 units tab (OTC)] 2,000 units PO DAILY [Last Taken 04/15/17] Metoprolol Succinate Xr [Toprol Xl 25 mg (*)] 25 mg PO DAILY 12/21/16 [Last Taken 04/15/17] Multivitamins [Multivitamin (*)] 1 each PO DAILY@12 12/21/16 [Last Taken ] Rivaroxaban [Xarelto] 20 mg PO HS 12/21/16 [Last Taken 04/14/17] C/E/Zn/Cu/OM3/DHA/EPA/LUT/ZEAX [Preservision Areds 2 Softgel] 1 each PO BID [Last Taken 04/15/17 09:00] Calcium Carbonate [Oyster Shell Calcium 500 mg (*)] 500 mg PO HS 04/15/17 [Last Taken 04/14/17] Escitalopram Oxalate [Lexapro 10 MG] 10 mg PO HS 04/15/17 [Last Taken 04/14/17] Felodipine [Plendil 5 MG (*)] 2.5 mg PO DAILY 04/15/17 [Last Taken 04/15/17] Flecainide Acetate [Tambocor] 75 mg PO BID 04/15/17 [Last Taken 04/15/17 09:00] Herbals/Supplements -Info Only 1 ea PO DAILY 04/15/17 [Last Taken Unknown] LORazepam [Ativan (*)] 0.25 mg PO BID@,19 04/15/17 [Last Taken 04/14/17] metFORMIN HCL [Glucophage 1000 mg] 1,000 mg PO BIDMEAL 04/15/17 [Last Taken 08:00] I have personally reviewed and updated: family history, medical history - Past Medical History atrial fibrillation Additional medical history: TIA - Family History Positive for: CAD Additional family history: Son with several stents placed at age 49. - Social History Smoking Status: Never smoked Alcohol Use: None Drug Use: None Review of Systems ROS: 10pt was reviewed & negative except for what was stated in HPI & below Physical Exam Temp Pulse Resp BP Pulse Ox 36.5 C 61 20 153/76 H 93 04/28/17 03:52 04/28/17 03:52 04/28/17 03:52 04/28/17 03:52 04/28/17 03:52 Constitutional: no apparent distress, appears nourished Eyes: PERRL, EOMI Ears, Nose, Mouth, Throat: moist mucous membranes, no oral mucosal ulcers Cardiovascular: regular rate and rhythym, no murmur, rub, or gallop Gastrointestinal: normoactive bowel sounds, soft, non-tender abdomen Skin: warm, no rashes or abrasions Musculoskeletal: full muscle strength, no muscle tenderness Neurologic: AAOx3 Psychiatric: interacting appropriately, not anxious Lab Data & Imaging Review 04/28/17 01:24 04/28/17 01:24 WBC 9.62 10^3/uL (3.80-9.50) H 04/28/17 01:24 RBC 3.72 10^6/uL (4.18-5.33) L 04/28/17 01:24 Hgb 12.1 g/dL (12.6-16.3) L 04/28/17 01:24 Hct 37.0 % (38.0-47.0) L 04/28/17 01:24 MCV 99.5 fL (81.5-99.8) 04/28/17 01:24 MCH 32.5 pg (27.9-34.1) 04/28/17 01:24 MCHC 32.7 g/dL (32.4-36.7) 04/28/17 01:24 RDW 12.4 % (11.5-15.2) 04/28/17 01:24 Plt Count 224 10^3/uL (150-400) 04/28/17 01:24 MPV 10.0 fL (8.7-11.7) 04/28/17 01:24 Neut % (Auto) 56.4 % (39.3-74.2) 04/28/17 01:24 Lymph % (Auto) 34.4 % (15.0-45.0) 04/28/17 01:24 [place] % (Auto) 6.8 % (4.5-13.0) 04/28/17 01:24 Eos % (Auto) 1.6 % (0.6-7.6) 04/28/17 01:24 Baso % (Auto) 0.5 % (0.3-1.7) 04/28/17 01:24 Nucleat RBC Rel Count 0.0 % (0.0-0.2) 04/28/17 01:24 Absolute Neuts (auto) 5.43 10^3/uL (1.70-6.50) 04/28/17 01:24 Absolute Lymphs (auto) 3.31 10^3/uL (1.00-3.00) H 04/28/17 01:24 Absolute Monos (auto) 0.65 10^3/uL (0.30-0.80) 04/28/17 01:24 Absolute Eos (auto) 0.15 10^3/uL (0.03-0.40) 04/28/17 01:24 Absolute Basos (auto) 0.05 10^3/uL (0.02-0.10) 04/28/17 01:24 Absolute Nucleated RBC 0.00 10^3/uL (0-0.01) 04/28/17 01:24 Immature Gran % 0.3 % (0.0-1.1) 04/28/17 01:24 Immature Gran # 0.03 10^3/uL (0.00-0.10) 04/28/17 01:24 Sodium 141 mEq/L (134-144) 04/28/17 01:24 Potassium 4.0 mEq/L (3.5-5.2) 04/28/17 01:24 Chloride 103 mEq/L (97-110) 04/28/17 01:24 Carbon Dioxide 26 mEq/l (22-31) 04/28/17 01:24 Anion Gap 12 mEq/L (8-16) 04/28/17 01:24 BUN 25 mg/dL (7-23) H 04/28/17 01:24 Creatinine 0.9 mg/dL (0.6-1.0) 04/28/17 01:24 Estimated GFR 59 04/28/17 01:24 Glucose 118 mg/dL (70-100) H 04/28/17 01:24 Calcium 10.0 mg/dL (8.5-10.4) 04/28/17 01:24 Total Bilirubin 0.4 mg/dL (0.1-1.4) 04/28/17 01:24 Conjugated Bilirubin 0.3 mg/dL (0.0-0.5) 04/28/17 01:24 Unconjugated Bilirubin 0.1 mg/dL (0.0-1.1) 04/28/17 01:24 AST 33 IU/L (14-46) 04/28/17 01:24 ALT 46 IU/L (9-52) 04/28/17 01:24 Alkaline Phosphatase 62 IU/L (38-126) 04/28/17 01:24 Troponin I < 0.012 ng/mL (0-0.034) 04/28/17 01:24 Total Protein 6.3 g/dL (6.3-8.2) 04/28/17 01:24 Albumin 3.9 g/dL (3.5-5.0) 04/28/17 01:24 Lipase 286.0 IU/L (23-300) 04/28/17 01:24 Visualized and Interpreted EKG results: Yes EKG Interpretation: Positive for: normal sinsus rhythm (TWIs stable from prior ECG noted) Assessment & Plan Assessment: 87 yo F w/ hx of Afib and recent TIA admitted with acute onset epi-gastric pain. Plan: 1. Epi-gastric pain - Suspect GI cause (GERD vs. gas pain) noting improvement with Tums. However, atypical anginal presentation could be expected in an 87 yo diabetic female. Initial troponin negative and ECG unchanged from prior. LFTs WNL and remainder of laboratory work-up unremarkable. - Continue to trend troponin, monitor on telemetry - Consider PPI at discharge if cardiac w/u negative 2. Afib - On dabigatran, metoprolol, and flecainide as an outpatient. 3. Recent TIA - Changed from rivaroxaban to dabigatran. Reviewed recent admission and discharge summary. 4. T2DM - On Metformin as outpatient Diet - NPO pending results of ACS r/o Code - Full per conversation with patient and son Ppx - LMWH Dispo - Admit to observation for ACS r/o
[2017-04-28 05:26] LABS: % IMMATURE GRANULYOCYTES 0.3 % (0.0-1.1); ABSOLUTE IMMATURE GRANULOCYTES 0.03 10^3/uL (0.00-0.10); ADD DIFF? NO; ADD MORPH? NO; ADD SCAN? NO; ATYPICAL LYMPHOCYTE FLAG 0 (0-99); FRAGMENT RBC FLAG 0 (0-99); HEMATOCRIT 35.8 % (38.0-47.0); HEMOGLOBIN 11.6 g/dL (12.6-16.3); LEFT SHIFT FLG 0 (0-99); LIPEMIA HEMOLYSIS FLAG 80 (0-99); MEAN CELL HEMOGLOBIN 32.5 pg (27.9-34.1); MEAN CELL HEMOGLOBIN CONCENTR. 32.4 g/dL (32.4-36.7); MEAN CELL VOLUME 100.3 fL (81.5-99.8); MEAN PLATELET VOLUME 9.9 fL (8.7-11.7); PLATELET CLUMPS FLAG 0 (0-99); PLATELET COUNT 196 10^3/uL (150-400); RED BLOOD CELL COUNT 3.57 10^6/uL (4.18-5.33); RED CELL DISTRIBUTION WIDTH 12.4 % (11.5-15.2)
[2017-04-28 05:47] LABS: ANION GAP 10 mEq/L (8-16); CALCIUM 9.9 mg/dL (8.5-10.4); CARBON DIOXIDE 26 mEq/l (22-31); CHLORIDE 102 mEq/L (97-110); CREATININE 0.9 mg/dL (0.6-1.0); GLOMERULAR FILTRATION RATE 59; GLUCOSE 139 mg/dL (70-100); POTASSIUM 4.4 mEq/L (3.5-5.2); SODIUM 138 mEq/L (134-144)
[2017-04-28 05:56] LABS: TROPONIN I < 0.012 ng/mL (0-0.034)
--- NOTE | 2017-04-28 10:19 | HOSPPROG ---
Hospitalist Progress Note Assessment/Plan: 87-year-old woman with a history of AFib and recent TIA. She is admitted with acute onset epigastric pain has resolved with Tums. She recently switched from Xarelto to Pradaxa for her TIA, she also is on metformin for diabetes and has had chronic diarrhea from that over the last 6 months. She admits to a 10 lb weight loss over the last 6 months however her in September. She has had early satiety and anorexia. She does have epigastric tenderness on exam. She does not have a history of heart disease and walks 30 minutes daily without any symptoms. # epigastric pain and tenderness on exam. Her pain has resolved however she continues to be tender on exam. She is status post cholecystectomy in her LFTs are normal * Will check CT scan to rule out obvious pathology. * GI consult for EGD * Start PPI therapy # atrial fibrillation, currently rate controlled continue current medications including Pradaxa and flecainide, may need to hold a dose of Pradaxa if she gets an EGD. # history of TIA with slight facial droop, and symptoms resolved. # hypertension, currently stable # type 2 diabetes currently on metformin. She has experienced diarrhea since starting the medication and takes Imodium daily. I discussed possible medication changes rather than living with chronic diarrhea and lower abdominal cramping. She will discuss this with her PCP. Given patient's abdominal tenderness and weight loss and patient's advanced age would recommend further evaluation while she is in the hospital including EGD. She will require greater than 2 midnight stay. Subjective: Patient new to me and chart reviewed. Doing well currently without any epigastric pain although has some tenderness on exam. Objective: Vital Signs Temp Pulse Resp BP Pulse Ox 36.7 C 61 16 135/58 H 93 04/28/17 07:21 04/28/17 07:21 04/28/17 07:21 04/28/17 07:21 04/28/17 07:21 Laboratory Results 04/28/17 05:15 04/28/17 05:15 04/27/17 04/28/17 04/29/17 05:59 05:59 05:59 Intake Total 100 Balance 100 - Physical Exam Constitutional: no apparent distress, appears nourished Eyes: PERRL, EOMI Ears, Nose, Mouth, Throat: moist mucous membranes, hearing normal Cardiovascular: regular rate and rhythym, no murmur, rub, or gallop Respiratory: no respiratory distress, no rales or rhonchi, clear to auscultation Gastrointestinal: normoactive bowel sounds, tenderness (Epigastric), guarding ( Minimal guarding in the epigastric/right upper quadrant), No ascites, No rebound Genitourinary: no bladder fullness Skin: warm, normal color Neurologic: AAOx3 Psychiatric: interacting appropriately, not anxious ICD10 Worksheet Patient Problems: Problems Problem Status Onset Epigastric pain Acute Atrial fibrillation Acute Transient ischemic attack Acute
[2017-04-28] MEDS ORDERED: HYOSCYAMINE SULFATE 0.125 MG TAB PO ONE (12:30)
--- NOTE | 2017-04-28 14:38 | SOAPPROG ---
SOAP Progress Note Assessment/Plan: Assessment:Plan: see full dictated consult CT scan, if negative, then EGD PPI, antacids 04/28/17 14:37 Objective: Vital Signs Temp Pulse Resp BP Pulse Ox 36.8 C 64 12 153/71 H 91 L 04/28/17 11:05 04/28/17 12:11 04/28/17 11:05 04/28/17 13:35 04/28/17 11:05 ICD10 Worksheet Patient Problems: Problems Problem Status Onset Epigastric pain Acute Atrial fibrillation Acute Transient ischemic attack Acute
[2017-04-28] MEDS: PANTOPRAZOLE SODIUM 40 MG TAB PO SCH (15:18)
[2017-04-28] MEDS ORDERED: IOPAMIDOL (ISOVUE-300) 100 ML BTL ONE (15:59)
--- NOTE | 2017-04-28 16:16 | GCON ---
[f rep st] CONSULTATION DATE OF CONSULTATION: 04/28/2017 REFERRING PHYSICIAN: Mallika Casiano MD REASON FOR CONSULTATION: Epigastric subxiphoid pain. HISTORY OF PRESENT ILLNESS: The patient is a pleasant 87-year-old female who has past medical histo ry significant for hypertension and diabetes. She has also had diarrhea for the last number of michaela hs, which I think is related to the initiation of metformin. Starting at 12:30 pm this morning she had epigastric subxiphoid pain that she said went up and down her esophagus. She is not having naus ea or vomiting, and no change in her bowel habits. No true relieving or aggravating factors. There was a very short duration of symptoms. She said, in hospital, some of the antacids and GI cocktail that she has been given seemed to be helpful. The pain does not radiate to her back or shoulder bl ades. She says it is up and down her esophagus. Her cardiac workup has been negative thus far. Orion yoo does have abnormality noted on the CT scan previously with dilated biliary system as well as dilat ed pancreatic system, but no obvious pancreatic lesion noted at that time. She is status post gurwinder cystectomy approximately 20 years ago. She does not take any significant NSAIDS, nor she drink alco hol to any significant extent. She is now admitted for the above and I was called to help evaluate in that regard. PAST MEDICAL HISTORY: Diabetes, hypertension, atrial fibrillation, TIA. PAST SURGICAL HISTORY: Gallbladder removed 20 years ago. MEDICATIONS: In hospital, Tylenol p.r.n., oyster shell calcium 500 mg q.h.s., vitamin D 200 mg roxanna y, Pradaxa 150 mg b.i.d., Lexapro 10 mg q.h.s., Plendil 2.5 mg daily, Ativan 0.25 mg p.o. b.i.d., me toprolol 25 mg daily, MultiVites, Zofran p.r.n., Pravachol 5 mg daily. Outpatient medications include baby aspirin, vitamin D, metoprolol, multivitamins, Xarelto, Lexapro, Plendil, flecainide, lorazepam, and metformin. Actually, the Xarelto was recently changed to Harshad xa. ALLERGIES: Penicillin and sulfa. FAMILY HISTORY: No cancers. Coronary artery disease in a son. SOCIAL HISTORY: Does not smoke, quit alcohol when she was in college. REVIEW OF SYSTEMS: A complete review of systems was performed, and was negative other than the HPI, with an additional 10-pound weight loss since October. PHYSICAL EXAMINATION: GENERAL: Elderly female, sitting in bed in some mild discomfort. VITAL SIGN S: Blood pressure is 153/71, pulse is 64, respirations are 12, she is 93% on room air. HEENT: Eye s anicteric, RAMIRE[place], EOMI. Mouth, no lesions, moist membranes. NECK: Supple. Full range of motion. No JVD. BACK: No spine tenderness. No CVA tenderness. LUNGS: Clear to auscultation. CARDIAC: S1, S2. Regular rate and rhythm. I do not appreciate any murmurs, rubs, or gallops. ABDOMEN: B owel sounds are normal in pitch and frequency. ABDOMEN: Soft, with epigastric subxiphoid tendernes s. No rebound, minimal guarding, no hepatosplenomegaly. EXTREMITIES: No cyanosis, clubbing, or ed nikolas. NEUROLOGIC: Cranial nerves intact, nonfocal. SKIN: No stigmata of advanced liver disease. No rashes. LABORATORY DATA: From today: WBC 9.21, hemoglobin 11.6, hematocrit 35.8, platelet count 196. Sodi um 138, potassium 4.4, chloride 102, bicarb 26, BUN 24, creatinine 0.9, glucose 139, calcium 9.0. M agnesium 2.0. From today, 1:24 in the morning: Bili 0.4, AST 33, ALT 46, alkaline phosphatase 62, total protein 6.3, albumin 3.9, lipase 286. Troponins have been less than 0.012 at 1 in the morning and 5 in the morning. Chest x-ray performed earlier this morning revealed no acute findings of the chest. Previous imagin g studies dating back a few years have revealed biliary and pancreatic ductal dilatation. The abdom inal CAT scan from May 10, 2015, revealed absent gallbladder, bile duct measuring up to 18 mm in diameter. On previous CT scan of 2010, it measured 14 mm, and on sonogram in 2010 it measured 16 mm . No evidence of choledocholithiasis. The pancreas is diffusely atrophic similar to prior study wi th moderate dilatation of the pancreatic duct measuring 5-6 mm. No evidence of mass in the pancreat ic head to explain pancreatic duct dilatation and common bile ductal dilatation. Rule out distal st ricture of the common bile duct. Abdominal MRI performed December 31, 2010: Moderate common bile duct al dilatation with no visible etiology, possibly related to the patient's age and prior cholecystect josue. Mild prominence of the pancreatic duct with pancreatic atrophy. They measured the common bile duct at approximately at 17 mm, 1.7 cm. They did not measure the pancreatic duct. There were no m asses identified on the limited unenhanced images of the abdomen. ASSESSMENT: 1. Epigastric subxiphoid pain, could be acid in nature. 2. History of hypertension. 3. History of diabetes. 4. Diarrhea, likely related to her metformin. 5. Weight loss of 10 pounds over the last number of months, unclear if related to GI symptoms or ot her etiology. 6. History of TIA. 7. Long-term anticoagulation. RECOMMENDATIONS: 1. Proceed with a CT of the abdomen as ordered. 2. Continue antacids. 3. Will restart pantoprazole; she was given a dose in the morning. 4. Antireflux lifestyle changes. 5. Continue anticoagulation for now. 6. If CT scan is unrevealing, consider EGD, although it would be limited on any type of therapeutic s secondary to the continued anticoagulation. 7. Further recommendations to follow results of above and clinical course. I think the likely etiology is acid reflux given her subxiphoid epigastric pain with pain happening overnight. She did lose her in October and some of her weight loss may be related to that depression. She has never had any previous symptoms like this. Certainly, I am concerned about martinez creatic ductal dilatation on previous CAT scan from a couple years ago. If it is stable and there i s no mass seem, then the likelihood that she has a pancreatic malignancy is extremely low. Pancreat ic cancer is unlikely to present with acute pain as Yvonne has presented. Nevertheless, repeating the CT scan for followup is appropriate. Thank you very much for allowing me to participate in the patient's healthcare. Do not hesitate to call if you any questions. /[id number]/MODL
[2017-04-28] MEDS: METOPROLOL SUCCINATE XR 25 MG TAB PO SCH (18:17)
[2017-04-28] MEDS: FELODIPINE 5 MG TAB.ER PO SCH (18:17)
[2017-04-28] MEDS ORDERED: CALCIUM CARBONATE 500 MG CHEWABLE TAB PO PRN (18:19)
[2017-04-28] MEDS: PRESERVISION AREDS2 FORMULA EYE VIT 1 EACH PO SCH (18:20)
[2017-04-28] MEDS ORDERED: MAG HYDROX/AL HYDROX/SIMETH 30 ML UDCUP PO PRN (18:21)
[2017-04-28] MEDS ORDERED: LIDOCAINE 2% VISCOUS 15 ML UDCUP PO PRN (18:21)
[2017-04-28] MEDS ORDERED: HYOSCYAMINE SULFATE 0.125 MG TAB PO PRN (18:21)
[2017-04-28] MEDS ORDERED: [UNRECOGNIZED DRUG - REMARK] MISC ONE (18:30)
[2017-04-28] MEDS: ESCITALOPRAM OXALATE 10 MG TAB PO SCH (20:53)
[2017-04-28] MEDS: LORazepam 0.5 MG TAB PO SCH (20:53)
[2017-04-28] MEDS: CALCIUM CARBONATE 500 MG TAB PO SCH (20:53)
[2017-04-28] MEDS: DABIGATRAN ETEXILATE MESYL 150 MG CAP PO SCH (20:53)
[2017-04-28] MEDS: FLECAINIDE 100 MG PO SCH (20:53)
[2017-04-28] MEDS ORDERED: NON-FORMULARY NEW DRUG (Vit A/Vit C/Vit E/Zinc/Copper [Preservision Areds Softgel] 1 EACH) PO SCH (21:00)
[2017-04-28] MEDS ORDERED: FLECAINIDE ACETATE 75 MG PO SCH (21:00)
[2017-04-29 05:06] LABS: HEMATOCRIT 39.3 % (38.0-47.0); MEAN CELL HEMOGLOBIN 32.7 pg (27.9-34.1); MEAN CELL HEMOGLOBIN CONCENTR. 33.1 g/dL (32.4-36.7); RED BLOOD CELL COUNT 3.97 10^6/uL (4.18-5.33); RED CELL DISTRIBUTION WIDTH 12.4 % (11.5-15.2)
[2017-04-29 05:18] LABS: ALANINE AMINOTRANSFERASE 51 IU/L (9-52); ALKALINE PHOSPHATASE 71 IU/L (38-126); ANION GAP 10 mEq/L (8-16); ASPARTATE AMINOTRANSFERASE 39 IU/L (14-46); BILIRUBIN,TOTAL 1.1 mg/dL (0.1-1.4); CALCIUM 9.8 mg/dL (8.5-10.4); CARBON DIOXIDE 27 mEq/l (22-31); CHLORIDE 100 mEq/L (97-110); CREATININE 0.8 mg/dL (0.6-1.0); GLOMERULAR FILTRATION RATE > 60; GLUCOSE 213 mg/dL (70-100); POTASSIUM 3.7 mEq/L (3.5-5.2); SODIUM 137 mEq/L (134-144); TOTAL PROTEIN 6.7 g/dL (6.3-8.2)
[2017-04-29] MEDS ORDERED: FELODIPINE 5 MG TAB.ER PO SCH (09:00)
[2017-04-29] MEDS ORDERED: NON-FORMULARY NEW DRUG (Cholecalciferol (Vitamin D3) [Vitamin D3] 2,000 UNIT) PO SCH (09:00)
[2017-04-29] MEDS ORDERED: METOPROLOL SUCCINATE XR 25 MG TAB PO SCH (09:00)
[2017-04-29] MEDS: PRAVASTATIN SODIUM 10 MG TAB PO SCH (09:14)
[2017-04-29] MEDS: PANTOPRAZOLE SODIUM 40 MG TAB PO SCH (09:14)
[2017-04-29] MEDS: FELODIPINE 5 MG TAB.ER PO SCH (09:15)
[2017-04-29] MEDS: METOPROLOL SUCCINATE XR 25 MG TAB PO SCH (09:16)
[2017-04-29] MEDS: FLECAINIDE 100 MG PO SCH ×2 (09:18→21:09)
--- NOTE | 2017-04-29 11:13 | HOSPPROG ---
Hospitalist Progress Note Assessment/Plan: 87-year-old woman with a history of AFib and recent TIA. She is admitted with acute onset epigastric pain has resolved with Tums. She recently switched from Xarelto to Pradaxa for her TIA, she also is on metformin for diabetes and has had chronic diarrhea from that over the last 6 months. She admits to a 10 lb weight loss over the last 6 months however her in September. She has had early satiety and anorexia. She does have epigastric tenderness on exam. She does not have a history of heart disease and walks 30 minutes daily without any symptoms. # epigastric pain and tenderness on exam. she has had intermittent pain here which is less intense than at home. It starts in the epigastric area and radiates to her back. It lasts about 2 minutes and typically improves with GI cocktails * CT scan reviewed * EGD today, Ongoing Pain without clear etiology * Start PPI therapy * Given ongoing pain, weight loss, patient age and comorbidities, patient needs additional midnight stay for work up. Late EGD tonight and will require anaesthesia. # atrial fibrillation, currently rate controlled continue current medications including Pradaxa and flecainide, may need to hold a dose of Pradaxa if she gets an EGD. # history of TIA with slight facial droop, and symptoms resolved. # hypertension, currently stable # type 2 diabetes currently on metformin. * discontinue metformin and follow her blood sugars here # Underweight, BMI 17.8, 10 pound weight loss Given patient's abdominal tenderness and weight loss and patient's advanced age would recommend further evaluation while she is in the hospital including EGD. She will require greater than 2 midnight stay. Subjective: had a couple episodes yesterday resolved with GI cocktail much less intense however now radiating to her back. No other associated symptoms. Objective: Vital Signs Temp Pulse Resp BP Pulse Ox 36.7 C 63 16 154/81 H 92 04/29/17 11:05 04/29/17 11:05 04/29/17 11:05 04/29/17 11:05 04/29/17 11:05 Laboratory Results 04/29/17 03:55 04/29/17 03:55 04/28/17 04/29/17 04/30/17 05:59 05:59 05:59 Intake Total 450 Output Total 900 Balance -450 - Physical Exam Constitutional: uncomfortable Eyes: PERRL Ears, Nose, Mouth, Throat: hearing normal, ears appear normal Cardiovascular: regular rate and rhythym, systolic murmur Respiratory: no respiratory distress, no rales or rhonchi, clear to auscultation Gastrointestinal: normoactive bowel sounds, tenderness ( Epigastric), No guarding, No rebound, No distension Genitourinary: no bladder fullness Skin: warm, normal color Musculoskeletal: generalized weakness Neurologic: AAOx3 Psychiatric: interacting appropriately, not anxious, not encephalopathic ICD10 Worksheet Patient Problems: Problems Problem Status Onset Epigastric pain Acute Atrial fibrillation Acute Transient ischemic attack Acute
[2017-04-29] MEDS ORDERED: NS 1,000 ML IV SCH (12:30)
[2017-04-29] MEDS: LORazepam 0.5 MG TAB PO SCH ×2 (13:07→21:10)
[2017-04-29] MEDS ORDERED: LR 1,000 ML IV ONE (16:41)
--- NOTE | 2017-04-29 18:39 | PDANEPAE ---
ANE History of Present Illness EGD ANE Past Medical History - Cardiovascular History Hx Hypertension: Yes Hx Arrhythmias: Yes Hx Chest Pain: No Hx Coronary Artery / Peripheral Vascular Disease: No - Pulmonary History Hx Asthma/Reactive Airway Disease: No Hx Recent Upper Respiratory Infection: No Hx Oxygen in Use at Home: No Hx Sleep Apnea: No Sleep Apnea Screening Result - Last Documented: Negative - Endocrine History Hx Diabetes: Yes Hypothyroid: No Hyperthyroid: No Obesity: no - Neurological & Psychiatric Hx Hx Neurological and Psychiatric Disorders: Yes Neurological / Psychiatric History Comment: TIA 2 weeks ago Speech and facial - Chronic Pain History Chronic Pain: No ANE Review of Systems - Exercise capacity METS (RN): 3 METS ANE Patient History - Allergies Allergies/Adverse Reactions: Niacin Preparations Allergy (Intermediate, Verified 04/28/17 01:02) Rash Penicillins Allergy (Intermediate, Verified 04/28/17 01:02) Rash codeine phosphate [From Codeine Phosphate Soluble] Allergy (Mild, Verified 04/28 01:02) NAUSEA Sulfa (Sulfonamide Antibiotics) Allergy (Mild, Verified 04/28/17 01:02) SPACEY - Home Medications Home Medications: Herbals/Supplements -Info Only 1 ea PO DAILY 04/15/17 [Last Taken Unknown] Aspirin [Aspirin 81mg (*)] 81 mg PO DAILY 04/28/17 [Last Taken Unknown] Calcium Carbonate [Calcium] 500 mg PO HS 04/28/17 [Last Taken Unknown] Cholecalciferol (Vitamin D3) [Vitamin D3] 2,000 unit PO DAILY 04/28/17 [Last Taken Unknown] Dabigatran Etexilate Mesyl [Pradaxa 150 MG (*)] 150 mg PO BID 04/28/17 [Last Taken Unknown] Escitalopram Oxalate [Lexapro] 10 mg PO HS 04/28/17 [Last Taken Unknown] Felodipine [Plendil 5 MG (*)] 2.5 mg PO DAILY 04/28/17 [Last Taken Unknown] Flecainide Acetate 75 mg PO BID 04/28/17 [Last Taken Unknown] LORazepam [Ativan (*)] 0.25 mg PO BID@12,19 04/28/17 [Last Taken Unknown] Metoprolol Succinate Xr [Toprol Xl 25 mg (*)] 25 mg PO DAILY 04/28/17 [Last Taken Unknown] Multivitamins [Multivitamin (*)] 1 each PO DAILY 04/28/17 [Last Taken Unknown] Pravastatin Sodium [Pravachol] 5 mg PO DAILY 04/28/17 [Last Taken Unknown] Vit A/Vit C/Vit E/Zinc/Copper [Preservision Areds Softgel] 1 each PO BID [Last Taken Unknown] metFORMIN HCL [Glucophage 1000 mg] 1,000 mg PO BIDMEAL 04/28/17 [Last Taken Unknown] - NPO status NPO Since - Liquids (Date): 04/29/17 NPO Since - Liquids (Time): 00:00 NPO Since - Solids (Date): 04/28/17 NPO Since - Solids (Time): 20:00 - Anes Hx Anes Hx: no prior problems - Smoking Hx Smoking Status: Never smoked Marijuana use: No - Alcohol Use Alcohol Use: None - Family Anes Hx Family Anes Hx: none ANE Labs/Vital Signs - Labs Result Diagrams: 04/29/17 03:55 04/29/17 03:55 - Vital Signs Blood Pressure: 167/70 Heart Rate: 84 Respiratory Rate: 18 O2 Sat (%): 95 Height: 167.64 cm Weight: 49.9 kg ANE Physical Exam - Airway Neck exam: decreased ROM Mouth exam: poor dentition - Pulmonary Pulmonary: no respiratory distress - Cardiovascular Cardiovascular: regular rate and rhythym - ASA Status ASA Status: III ANE Anesthesia Plan Anesthesia Plan: GA w LMA
[2017-04-29] MEDS ORDERED: PROPOFOL 200 MG/20 ML VIAL ONE (18:45)
--- NOTE | 2017-04-29 18:55 | SUROPNOTE ---
[facility] Operative Report - Surgery EGD Meds: per anesthesia Complications: none acutely Indication: epigastric abdominal pain Findings: 1. Esophagus - mid esophagus with esophagitis - bx'd 2. Stomach - mild to moderate gastritis - bx'd 3. Duodenum - normal - bx'd Recommendations: 1. Abdominal Pain - check h.pylori serology - check celiac labs - continue PPI BID - advance diet - follow symptoms - consider additional carafate, TUMS, pepto, Maalox, etc PRN if needed - ok to resume Pradaxa tomorrow
[2017-04-29] MEDS ORDERED: NALOXONE HCL 0.4 MG/ML INJ IVP PRN (19:04)
[2017-04-29] MEDS: DABIGATRAN ETEXILATE MESYL 150 MG CAP PO SCH ×2 (19:11→21:10)
[2017-04-29] MEDS: CHOLECALCIFEROL VIT D3 2,000 UNITS TAB/CAP PO SCH (19:11)
[2017-04-29] MEDS: PRESERVISION AREDS2 FORMULA EYE VIT 1 EACH PO SCH (19:11)
[2017-04-29] MEDS: MULTIVITAMINS 1 EACH TAB PO SCH (19:11)
--- NOTE | 2017-04-29 19:44 | GPN ---
[f rep st] PROCEDURE NOTE PROCEDURE: Upper endoscopy. INDICATION: Abdominal pain and weight loss. MEDICATIONS USED: Per Anesthesia. COMPLICATIONS: None. DESCRIPTION OF PROCEDURE: After informed consent was obtained, the patient was placed in the left lateral decubitus position, and the forward-viewing upper endoscope was advanced through the mouth into the proximal duodenum. Retroflex views in the gastric cardia were obtained. FINDINGS: 1. There was a 2-4 cm patch of circumferential esophagitis noted in the mid esophagus. Biopsies were obtained. The remainder of the proximal and distal esophagus appeared normal. 2. There was mild to moderate gastritis throughout the stomach. There were no erosions or ulcerations. Biopsies were obtained. 3. The duodenum appeared normal. Biopsies were obtained to rule out celiac disease. IMPRESSION AND RECOMMENDATIONS: This patient's EGD revealed esophagitis and gastritis. Both of these findings could be responsible for abdominal symptoms and poor appetite. Biopsies were obtained to discover the etiologies of the inflammation. The patient can resume her diet. I recommend she stay on proton pump inhibitor therapy. Additional soothing agents such as Carafate, Maalox, Tums, could be considered empirically if additional symptom control needed. /[id number]/MODL MTDD
--- NOTE | 2017-04-29 19:59 | POSTANESTH ---
Post Anesthetic Evaluation Cardiovascular Status: Normal, Stable Respiratory Status: Normal, Stable Level of Consciousness/Mental Status: Can Participate in Eval Pain Control: Adequate, Prn Tx Ordered Nausea/Vomiting Control: Adequate, Prn Tx Ordered Complications Possibly Related to Anesthesia: None Noted
[2017-04-29] MEDS: ESCITALOPRAM OXALATE 10 MG TAB PO SCH (21:10)
[2017-04-29] MEDS: FAMOTIDINE 20 MG TAB PO SCH (21:10)
[2017-04-29] MEDS: CALCIUM CARBONATE 500 MG TAB PO SCH (21:14)
[2017-04-30 08:46] LABS: ANION GAP 9 mEq/L (8-16); CALCIUM 9.3 mg/dL (8.5-10.4); CARBON DIOXIDE 25 mEq/l (22-31); CHLORIDE 104 mEq/L (97-110); CREATININE 0.7 mg/dL (0.6-1.0); GLOMERULAR FILTRATION RATE > 60; GLUCOSE 138 mg/dL (70-100); POTASSIUM 3.6 mEq/L (3.5-5.2); SODIUM 138 mEq/L (134-144)
[2017-04-30] MEDS: PRAVASTATIN SODIUM 10 MG TAB PO SCH (10:02)
[2017-04-30] MEDS: FELODIPINE 5 MG TAB.ER PO SCH (10:02)
[2017-04-30] MEDS: PRESERVISION AREDS2 FORMULA EYE VIT 1 EACH PO SCH (10:02)
[2017-04-30] MEDS: CHOLECALCIFEROL VIT D3 2,000 UNITS TAB/CAP PO SCH (10:02)
[2017-04-30] MEDS: PANTOPRAZOLE SODIUM 40 MG TAB PO SCH (10:02)
[2017-04-30] MEDS: FLECAINIDE 100 MG PO SCH (10:02)
[2017-04-30] MEDS: FAMOTIDINE 20 MG TAB PO SCH (10:03)
[2017-04-30] MEDS: MULTIVITAMINS 1 EACH TAB PO SCH (10:03)
[2017-04-30] MEDS: METOPROLOL SUCCINATE XR 25 MG TAB PO SCH (10:03)
[2017-04-30] MEDS: DABIGATRAN ETEXILATE MESYL 150 MG CAP PO SCH (10:03)
[2017-04-30] MEDS: LORazepam 0.5 MG TAB PO SCH (11:27)
--- NOTE | 2017-04-30 11:52 | HOSPPROG ---
Hospitalist Progress Note Assessment/Plan: 87-year-old woman with a history of AFib and recent TIA. She is admitted with acute onset epigastric pain has resolved with Tums. She recently switched from Xarelto to Pradaxa for her TIA, she also is on metformin for diabetes and has had chronic diarrhea from that over the last 6 months. She ruled out for cardiac causes and has had ongoing symptoms of epigastric pain radiating to her back which responds well to a GI cocktail. Endoscopy yesterday was positive for gastritis and esophagitis which could be contributing to her symptoms. She is feeling good today however overnight had some hallucinations and is sedated still slightly this morning # epigastric pain and tenderness on exam. CT scan done which did show some distal biliary dilation, she is status post cholecystectomy. At peers to relatively stable over the last 2 days years I would not do any further evaluation at this time. Her endoscopy was positive for gastritis and esophagitis with continue Protonix at discharge and can use Carafate on as needed basis. # acute encephalopathy likely secondary to anesthesia. * PT OT evaluation today to determine if she is safe for discharge, may need additional midnight stay given her unsteady gait and confusion. # atrial fibrillation, currently rate controlled continue current medications including Pradaxa and flecainide # history of TIA with slight facial droop, and symptoms resolved. # hypertension, currently stable # type 2 diabetes currently on metformin. * discontinue metformin and follow her blood sugars here # Underweight, BMI 17.8, 10 pound weight loss Given patient's abdominal tenderness and weight loss and patient's advanced age would recommend further evaluation while she is in the hospital including EGD. She will require greater than 2 midnight stay. Subjective: Feels good this morning however her son notes that she was quite confused overnight and hallucinating. She is closer to baseline however was unsteady on her feet when she went to the bathroom Objective: Vital Signs Temp Pulse Resp BP Pulse Ox 36.5 C 58 L 19 168/78 H 96 04/30/17 08:00 04/30/17 08:00 04/30/17 08:00 04/30/17 08:00 04/30/17 08:00 Laboratory Results 04/29/17 03:55 04/30/17 08:06 04/29/17 04/30/17 05/01/17 05:59 05:59 05:59 Intake Total 450 250 Output Total 900 550 Balance -450 -300 - Physical Exam Constitutional: no apparent distress, not in pain, chronically ill appearing Eyes: PERRL, EOMI Ears, Nose, Mouth, Throat: moist mucous membranes Cardiovascular: regular rate and rhythym, systolic murmur Respiratory: no respiratory distress, clear to auscultation Gastrointestinal: normoactive bowel sounds, tenderness (Epigastric area), No guarding, No rebound, No distension Genitourinary: no bladder fullness Skin: warm Musculoskeletal: generalized weakness Neurologic: AAOx3 Psychiatric: interacting appropriately, not anxious ICD10 Worksheet Patient Problems: Problems Problem Status Onset Transient ischemic attack Acute Epigastric pain Acute Atrial fibrillation Acute
--- NOTE | 2017-04-30 12:30 | SOAPPROG ---
SOAP Progress Note Assessment/Plan: Assessment: 1. Abd Pain - s/p EGD with bx - EGD showed esophagitis and gastritis - h.pylori neg Plan: 1. Abd Pain/Esophagitis/Gastritis - ok to change to PO PPI BID x 12 weeks, then QD - ok to advance diet and dc home once tolerating po, if pain seems improving - bx pending. my office will call pt with results - will sign off, call with questions 04/30/17 12:27 Subjective: CC: f/u s/p EGD and bx S: slept poorly after anesthesia no vomiting son reports less pain, and that pt tolerated some po no diarrhea no nausea no fever no chest pain no cough Objective: Vital Signs Temp Pulse Resp BP Pulse Ox 36.5 C 58 L 19 168/78 H 96 04/30/17 08:00 04/30/17 08:00 04/30/17 08:00 04/30/17 08:00 04/30/17 08:00 Laboratory Results 04/29/17 03:55 04/30/17 08:06 04/29/17 04/30/17 05/01/17 05:59 05:59 05:59 Intake Total 450 250 Output Total 900 550 Balance -450 -300 Physical Exam - Physical Exam General Appearance: WD/WN EENT: PERRL/EOMI Neck: non-tender Respiratory: chest non-tender, lungs clear Cardiac/Chest: normal peripheral pulses Abdomen: normal bowel sounds, non-tender, soft Skin: normal color Extremities: normal range of motion Neuro/Psych: no motor/sensory deficits ICD10 Worksheet Patient Problems: Problems Problem Status Onset Epigastric pain Acute Atrial fibrillation Acute Transient ischemic attack Acute
[2017-04-30 15:26] VITALS: BP 134/63; PULSE 63; RESP 16; TEMP 97.5; O2SAT 90
--- NOTE | 2017-04-30 15:44 | PDIAF ---
- Diagnosis Diagnosis: gastritis, abdominal pain, history of afib, tia. Code Status: Full Code - Medication Management Discharge Medications: Medications to Continue on Transfer Herbals/Supplements -Info Only 1 ea PO DAILY 04/15/17 [Last Taken Unknown] Aspirin [Aspirin 81mg (*)] 81 mg PO DAILY 04/28/17 [Last Taken Unknown] Calcium Carbonate [Calcium] 500 mg PO HS 04/28/17 [Last Taken Unknown] Cholecalciferol (Vitamin D3) [Vitamin D3] 2,000 unit PO DAILY 04/28/17 [Last Taken Unknown] Dabigatran Etexilate Mesyl [Pradaxa 150 MG (*)] 150 mg PO BID 04/28/17 [Last Taken Unknown] Escitalopram Oxalate [Lexapro 10 MG] 10 mg PO HS 04/28/17 [Last Taken Unknown] Felodipine [Plendil 5 MG (*)] 2.5 mg PO DAILY 04/28/17 [Last Taken Unknown] Flecainide Acetate 75 mg PO BID 04/28/17 [Last Taken Unknown] LORazepam [Ativan (*)] 0.25 mg PO BID@12,19 04/28/17 [Last Taken Unknown] Metoprolol Succinate Xr [Toprol Xl 25 mg (*)] 25 mg PO DAILY 04/28/17 [Last Taken Unknown] Multivitamins [Multivitamin (*)] 1 each PO DAILY 04/28/17 [Last Taken Unknown] Pravastatin Sodium [Pravachol] 5 mg PO DAILY 04/28/17 [Last Taken Unknown] Vit A/Vit C/Vit E/Zinc/Copper [Preservision Areds Softgel] 1 each PO BID [Last Taken Unknown] Pantoprazole Sodium [Protonix 40mg (*)] 40 mg PO DAILY #30 tab 04/30/17 [Last Taken Unknown] Sucralfate [Carafate Oral Liquid] 1 gm PO QID PRN #1200 ml 04/30/17 [Last Taken Unknown] metFORMIN HCL [Metformin HCl] 500 mg PO BID #60 tablet 04/30/17 [Last Taken Unknown] Discharge Medications: Refer to the Discharge Home Medication list for PRN reason. - Orders Services needed: Home Care, Registered Nurse, Physical Therapy Home Care Face to Face: I certify that this patient was under my care and that I had the required [id number] encounter meeting the encounter requirements on the discharge day. My findings support the fact that the patient is homebound as defined in CMS Chapter 7 Medicare Benefits Manual 30.1.1, The condition of the patient is such that there exists a normal inability to leave home and consequently, leaving home would require a considerable and taxing effort. Diet Recommendation: no restrictions on diet Diet Texture: Regular Texture Diet - Follow Up Care Current Providers and Referrals: Lisa De La Rosa MD [Primary Care Provider] - As per Instructions
--- NOTE | 2017-04-30 19:58 | GDS ---
[f rep st] DISCHARGE SUMMARY DIAGNOSES: 1. Abdominal pain secondary to gastritis. 2. Atrial fibrillation, currently rate controlled and anticoagulated with Pradaxa. 3. History of transient ischemic attack with slight facial droop, symptoms resolved. 4. Hypertension. 5. Type 2 diabetes. Metformin dose decreased due to diarrhea with her current dosing. 6. Underweight with a body mass index of 17.8. 7. Abnormal CT scan with stable findings of biliary ductal dilation and some ductal dilation in the pancreas. This was noted previously on a CAT scan 2 years ago. CONSULTATIONS: Gastroenterology. PROCEDURES DONE: 1. Abdominal CT. 2. Upper endoscopy showing gastritis and esophagitis, biopsies pending. HOSPITAL COURSE: The patient is an 87-year-old with a history recent TIA associated with AFib. She was placed on Xarelto and switched over to Pradaxa 2 days ago. She comes in with acute onset of ep igastric pain. She was initially treated with a GI cocktail with complete resolution of her symptom s. However, she had significant tenderness on exam. She was admitted to the hospital. Ruled out f or cardiac cause with telemetry and serial enzymes. GI was consulted. Abdominal CT scan was done, given her tenderness. That was fairly unremarkable, except for the above findings. GI took her for upper endoscopy, which revealed gastritis. She did develop mild encephalopathy post anesthesia and needed to spend the night for resolution of that. On the day of discharge, she worked with [facility] and is doing well, although would likely benefit from home care including nursing and phys ical therapy. MEDICATION CHANGES: Protonix and sucralfate were added to her regimen. I did decrease her metformi n from a 1000 b.i.d. to 500 b.i.d., given her ongoing issues of diarrhea from her current metformin dose. CONDITION ON DISCHARGE: Good. VITAL SIGNS: Stable. GENERAL: She is alert. ABDOMEN: She has ve ry minimal epigastric tenderness. HEART: Regular. LUNGS: Clear. DISCHARGE MEDICATIONS: Please see discharge medication form. FOLLOWUP: Will be with Dr. Lisa De La Rosa in 1-2 weeks. Total time spent with patient on day of discharge and coordination of care is 35 minutes. /[id number]/MODL
[2017-05-03 20:23] LABS: CELIAC DISEASE INTERPRETATION See Comments; CELIAC GENE PAIRS PRESENT? No; IMMUNOGLOBULIN A CELIAC 175 mg/dL (61 - 356)
== END 2017-04-30 16:54 | disposition home health service (06) | DRG 391 ==
LOC: EEVIPCON 00:54 → F2W 03:35 → OBSVTOIN 10:41
PROVIDERS: ADMIT Student in an Organized Health Care Education/Training Program; ATTEND Student in an Organized Health Care Education/Training Program
PROC: 0DB68ZX Excision of Stomach, Via Natural or Artificial Opening Endoscopic, Diagnostic (ICD-10-PCS; principal; 2017-04-29 16:15)
PROC: 0DB98ZX Excision of Duodenum, Via Natural or Artificial Opening Endoscopic, Diagnostic (ICD-10-PCS; principal; 2017-04-29 16:15)
PROC: 0DB28ZX Excision of Middle Esophagus, Via Natural or Artificial Opening Endoscopic, Diagnostic (ICD-10-PCS; principal; 2017-04-29 16:15)
DX: K29.70 Gastritis, unspecified, without bleeding (principal); K20.9 Esophagitis, unspecified; G92 Toxic encephalopathy; T41.1X5A Adverse effect of intravenous anesthetics, initial encounter; R63.6 Underweight; Z68.1 Body mass index [BMI] 19.9 or less, adult; E11.9 Type 2 diabetes mellitus without complications; I10 Essential (primary) hypertension; I48.91 Unspecified atrial fibrillation; Z86.73 Personal history of transient ischemic attack (TIA), and cerebral infarction without residual deficits
CPT/HCPCS: 82784-90; 83516-90; 96365; 97116-GP; 97161-GP; 97530-GP; G8978-GP-CI; G8979-GP-CI; J2704; Q9967

== ENCOUNTER → 2017-07-04 | Outpatient (CLI) | payer OTHER | LOC: FIMAGING 16:36 | PROVIDERS: ATTEND Registered Nurse | DX: M79.605 Pain in left leg (principal) ==

== ENCOUNTER → 2017-07-09 | Outpatient (CLI) | payer OTHER | LOC: FIMAGING 11:01 | PROVIDERS: ATTEND Family Medicine | DX: M54.6 Pain in thoracic spine (principal) ==

== ENCOUNTER → 2017-08-29 | Outpatient (CLI) | payer OTHER | LOC: FIMAGING 08:55 | PROVIDERS: ATTEND Family Medicine | DX: Z13.820 Encounter for screening for osteoporosis (principal); M81.0 Age-related osteoporosis without current pathological fracture; S22.000A Wedge compression fracture of unspecified thoracic vertebra, initial encounter for closed fracture ==

== ENCOUNTER 2018-01-01 19:25 | Emergency (ER) | payer OTHER ==
[2018-01-01] MEDS ORDERED: PROPARACAINE 0.5% 15 ML OPHT DROP ONE (19:44)
[2018-01-01] MEDS ORDERED: FLUORESCEIN SOD/BENOXINATE HCL 20 DROPS/ML OPHT.BTL ONE (19:44)
--- NOTE | 2018-01-01 20:22 | EDPHY ---
H & P Time Seen by Provider: 01/01/18 19:44 HPI/ROS: CHIEF COMPLAINT: Right eye pain HISTORY OF PRESENT ILLNESS: The patient is an 87-year-old female with a history of macular degeneration. She is followed by Dr. Nieves. Every 5 weeks she received an injection in her right eye for her macular degeneration. She had her ejection earlier this morning. She states she normally has mild discomfort after the procedure but by the afternoon it is gone. She complains of ongoing right eye pain. Patient also complains of right ear pain. There has been no discharge. She states that hurts when she wears her hearing aid. No fevers or chills. No nausea or vomiting. REVIEW OF SYSTEMS: My complete review of systems is negative except as mentioned in the HPI. Past Medical/Surgical History: Includes macular degeneration, basal cell carcinoma, TIA, atrial fibrillation, diabetes Past surgical history: Includes cholecystectomy, hysterectomy Social history: Patient recently moved into a alf facility. Smoking Status: Never smoked Physical Exam: Vitals noted GENERAL: Well-appearing, in no acute distress, alert. Ears: The patient has mild erythema right TM. This seems more irritative than infectious. There is no fluid behind the ear. There is no otitis externa. No mastoid tenderness. Eyelids: Normal inspection, everted for exam. Conjunctiva and sclera: Normal inspection. No foreign material. No subconjunctival hemorrhage. No exudate. Not injected. Corneas: Normal inspection. Examined with fluorescein dye: No uptake, abrasion, or ulcer. EOMs: Intact. Pupils: PERRL, normal accommodation. Anterior chambers: Normal inspection. No hyphema. No cells or flare. Posterior segments: Normal funduscopic exam Constitutional: Initial Vital Signs Temperature (C) 37.1 C 01/01/18 19:37 Heart Rate 94 01/01/18 19:37 Respiratory Rate 18 01/01/18 19:37 Blood Pressure 133/77 H 01/01/18 19:37 O2 Sat (%) 97 01/01/18 19:37 O2 Delivery Mode Room Air Allergies/Adverse Reactions: Niacin Preparations Allergy (Intermediate, Verified 04/28/17 01:02) Rash Penicillins Allergy (Intermediate, Verified 04/28/17 01:02) Rash codeine phosphate [From Codeine Phosphate Soluble] Allergy (Mild, Verified 04/28 01:02) NAUSEA Sulfa (Sulfonamide Antibiotics) Allergy (Mild, Verified 04/28/17 01:02) SPACEY Home Medications: Medication Instructions Recorded Herbals/Supplements -Info Only 1 ea PO DAILY 04/15/17 Aspirin [Aspirin 81mg (*)] 81 mg PO DAILY 04/28/17 Calcium Carbonate [Calcium] 500 mg PO HS 04/28/17 Cholecalciferol (Vitamin D3) 2,000 unit PO DAILY 04/28/17 [Vitamin D3] Dabigatran Etexilate Mesyl 150 mg PO BID 04/28/17 [Pradaxa 150 MG (*)] Escitalopram Oxalate [Lexapro 10 10 mg PO HS 04/28/17 MG] Felodipine [Plendil 5 MG (*)] 2.5 mg PO DAILY 04/28/17 Flecainide Acetate 75 mg PO BID 04/28/17 LORazepam [Ativan (*)] 0.25 mg PO BID@12,19 04/28/17 Metoprolol Succinate Xr [Toprol Xl 25 mg PO DAILY 04/28/17 25 mg (*)] Multivitamins [Multivitamin (*)] 1 each PO DAILY 04/28/17 Pravastatin Sodium [Pravachol] 5 mg PO DAILY 04/28/17 Vit A/Vit C/Vit E/Zinc/Copper 1 each PO BID 04/28/17 [Preservision Areds Softgel] Pantoprazole Sodium [Protonix 40mg 40 mg PO DAILY #30 tab 04/30/17 (*)] Sucralfate [Carafate Oral Liquid 1 gm PO QID PRN #1200 ml 04/30/17 100 mg/ml] metFORMIN HCL [Metformin HCl] 500 mg PO BID #60 tablet 04/30/17 Medical Decision Making ED Course/Re-evaluation: In the emergency department the patient's eye pain resolved when I put proparacaine drops in her right eye. I discussed case with Dr. Nieves. She recommended the patient be discharged with follow-up. She recommended the patient use her eye drops, keep her eyes closed and use cold compresses. I discussed the plan with the patient. I answered all her questions. She was given warnings prior to leaving. 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 Differential Diagnosis: The patient presents emergency department with right eye pain after her procedure. She could have a corneal abrasion. I do not see 1 on examination. There is no ulceration. I do not see a globe rupture. There is no visible signs of vitreous hemorrhage. I doubt glaucoma. Patient's right TM was mildly irritated. However, there was no fluid behind the eardrum or other signs of infection. I think otitis media is unlikely. I saw no otitis externa. Departure - Departure Disposition: Home, Routine, Self-Care Clinical Impression: Acute right eye pain, Right ear pain Condition: Good Instructions: Corneal Abrasion (ED) Additional Instructions: Use your eyedrops at home. Keep your eye closed as much as possible. Use cold compresses. Referrals: Lisa De La Rosa MD [Primary Care Provider] - As per Instructions Gogo Schulte MD [Medical Doctor] - 5-7 days, if not improved SAPNA NIEVES [Medical Doctor] - 2-3 days, if not improved
[2018-01-01 20:39] VITALS: BP 137/78
== END 2018-01-01 20:39 | disposition home or self-care (01) ==
DX: H57.11 Ocular pain, right eye (principal); H92.01 Otalgia, right ear; E11.9 Type 2 diabetes mellitus without complications; Z79.82 Long term (current) use of aspirin; Z79.84 Long term (current) use of oral hypoglycemic drugs; Z85.828 Personal history of other malignant neoplasm of skin

== ENCOUNTER 2018-02-18 20:27 | Emergency (ER) | payer OTHER ==
--- NOTE | 2018-02-18 20:47 | CPEKG ---
Heart Rate: 101 RR Interval: 594 QRSD Interval: 86 QT Interval: 336 QTC Interval: 436 QRS Sharon: 19 T Wave Sharon: 256 EKG Severity - ABNORMAL ECG - EKG Impression: ATRIAL FIBRILLATION EKG Impression: PROBABLE LVH WITH SECONDARY REPOL ABNRM Electronically Signed By: Chase Barcenas 19-Feb-2018 11:45:21
--- NOTE | 2018-02-18 20:52 | EDPHY ---
HPI/HX/ROS/PE/MDM Narrative: CHIEF COMPLAINT: Atrial fibrillation HPI: This patient is an anticoagulated (Pradaxa) 88 year old female with history of atrial fibrillation. She presents today with a sensation of her heart "pumping hard". These symptoms have been ongoing for a few weeks. Her son at bedside states she was bothered by her symptoms this evening more than usual. The patient denies chest pain, shortness of breath, or syncope. She has no further complaints at this time. REVIEW OF SYSTEMS: Aside from elements discussed in the HPI, a comprehensive 10-point review of systems was reviewed and is negative. PMH: Atrial fibrillation (Flecainide). TIA (Pradaxa). SOCIAL HISTORY: Son at bedside. PCP Dr. De La Rosa. 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 PHYSICAL EXAM: General:Patient is alert, in no acute distress. She is very soft-spoken. ENT:Eyes are normal to inspection. ENT inspection normal. Neck: Normal inspection. Full range of motion. Respiratory:No respiratory distress. Breath sounds normal bilaterally. Cardiovascular: Regular rate and rhythm. Strong peripheral pulses. Normal cap refill. Abdomen:The abdomen is nontender to palpation. There are no peritoneal signs. There are normal bowel sounds. Back: Normal to inspection. No tenderness to palpation. Skin: Normal color. No rash. Warm and dry. Extremities: Normal appearance. Full range of motion. Neuro: Oriented x3. Normal motor function. Normal sensory function. ED Course: 88 y/o female presents with atrial fibrillation. Plan for EKG, labs including CBC, chemistries, troponin. EKG was ordered and interpreted by myself. Please see [employer] system for official reading. Atrial fibrillation, rate 101. Reviewed prior EKG from 04/28/17 for comparison. 21:30 Laboratory studies unremarkable. Plan for CXR. Chest x-ray negative for acute processes. 22:10 Reassessed patient. Discussed imaging and laboratory results with her and her son. I offered admission, but the patient prefers to go home. Her son will stay with her tonight. Plan to discharge home in good condition. She will follow up with her bus mechanic. Return precautions discussed. They are comfortable with this plan. MDM: This patient has a history of atrial fibrillation and is appropriately on Pradaxa and flecanide. She reports several transient episodes of an abnormal feeling in her chest over the past few weeks which she has difficulty describing. She states it feels like a "movement" in her chest, possibly "pumping harder than normal." She denies pain or tachycardia on numerous questionings. We performed an extensive workup in the ED which is negative for electrolyte abnormality, signs of infection or ACS. She remained in rate- controlled atrial fibrillation throughout her ED stay with no events noted. She is able to walk around the ED without any difficulty and states this actually makes her feel better. I had an extensive discussion with the patient and her son and offered them admission for telemetry monitoring. She declines this. We discussed strict return precautions and they understand that the etiology of her symptoms is currently unknown. - Data Points Imaging Results: Imaging Impressions Chest X-Ray 02/18/18 21:30 Impression: 1.No evidence for cardiac failure. 2. New T9 compression x 11 months. Imaging: I viewed and interpreted images myself Laboratory Results: Laboratory Results 02/18/18 20:45 02/18/18 20:45 02/18/18 02/18/18 20:45 20:45 WBC 7.15 10^3/uL 10^3/uL (3.80-9.50) RBC 3.86 10^6/uL L 10^6/uL (4.18-5.33) Hgb 11.9 g/dL L g/dL (12.6-16.3) Hct 36.2 % L % (38.0-47.0) MCV 93.8 fL fL (81.5-99.8) MCH 30.8 pg pg (27.9-34.1) MCHC 32.9 g/dL g/dL (32.4-36.7) RDW 14.0 % % (11.5-15.2) Plt Count 347 10^3/uL 10^3/uL (150-400) MPV 9.6 fL fL (8.7-11.7) Neut % (Auto) 54.8 % % (39.3-74.2) Lymph % (Auto) 34.4 % % (15.0-45.0) [place] % (Auto) 8.1 % % (4.5-13.0) Eos % (Auto) 1.8 % % (0.6-7.6) Baso % (Auto) 0.6 % % (0.3-1.7) Nucleat RBC Rel Count 0.0 % % (0.0-0.2) Absolute Neuts (auto) 3.92 10^3/uL 10^3/uL (1.70-6.50) Absolute Lymphs (auto) 2.46 10^3/uL 10^3/uL (1.00-3.00) Absolute Monos (auto) 0.58 10^3/uL 10^3/uL (0.30-0.80) Absolute Eos (auto) 0.13 10^3/uL 10^3/uL (0.03-0.40) Absolute Basos (auto) 0.04 10^3/uL 10^3/uL (0.02-0.10) Absolute Nucleated RBC 0.00 10^3/uL 10^3/uL (0-0.01) Immature Gran % 0.3 % % (0.0-1.1) Immature Gran # 0.02 10^3/uL 10^3/uL (0.00-0.10) Sodium 141 mEq/L mEq/L (135-145) Potassium 3.4 mEq/L mEq/L (3.3-5.0) Chloride 100 mEq/L mEq/L (97-110) Carbon Dioxide 29 mEq/l mEq/l (22-31) Anion Gap 12 mEq/L mEq/L (8-16) BUN 32 mg/dL H mg/dL (7-23) Creatinine 1.0 mg/dL mg/dL (0.6-1.0) Estimated GFR 52 Glucose 187 mg/dL H mg/dL (70-100) Calcium 10.1 mg/dL mg/dL (8.5-10.4) Troponin I < 0.012 ng/mL ng/mL (0.000-0.034) General Time Seen by Provider: 02/18/18 20:38 Initial Vital Signs: Initial Vital Signs Temperature (C) 36.4 C 02/18/18 20:30 Heart Rate 96 02/18/18 20:30 Respiratory Rate 20 02/18/18 20:30 Blood Pressure 169/86 H 02/18/18 20:30 O2 Sat (%) 97 02/18/18 20:30 O2 Delivery Mode Room Air Allergies/Adverse Reactions: Niacin Preparations Allergy (Intermediate, Verified 02/18/18 20:30) Rash Penicillins Allergy (Intermediate, Verified 02/18/18 20:30) Rash codeine phosphate [From Codeine Phosphate Soluble] Allergy (Mild, Verified 02/18 20:30) NAUSEA Sulfa (Sulfonamide Antibiotics) Allergy (Mild, Verified 02/18/18 20:30) SPACEY codeine phosphate Allergy (Unknown, Uncoded 02/10/18 16:29) NAUSEA Home Medications: Medication Instructions Recorded Herbals/Supplements -Info Only 1 ea PO DAILY 04/15/17 Aspirin [Aspirin 81mg (*)] 81 mg PO DAILY 04/28/17 Calcium Carbonate [Calcium] 500 mg PO HS 04/28/17 Cholecalciferol (Vitamin D3) 2,000 unit PO DAILY 04/28/17 [Vitamin D3] Dabigatran Etexilate Mesyl 150 mg PO BID 04/28/17 [Pradaxa 150 MG (*)] Escitalopram Oxalate [Lexapro 10 10 mg PO HS 04/28/17 MG] Felodipine [Plendil 5 MG (*)] 2.5 mg PO DAILY 04/28/17 Flecainide Acetate 75 mg PO BID 04/28/17 LORazepam [Ativan (*)] 0.25 mg PO BID@12,19 04/28/17 Metoprolol Succinate Xr [Toprol Xl 25 mg PO DAILY 04/28/17 25 mg (*)] Multivitamins [Multivitamin (*)] 1 each PO DAILY 04/28/17 Pravastatin Sodium [Pravachol] 5 mg PO DAILY 04/28/17 Vit A/Vit C/Vit E/Zinc/Copper 1 each PO BID 04/28/17 [Preservision Areds Softgel] Pantoprazole Sodium [Protonix 40mg 40 mg PO DAILY #30 tab 04/30/17 (*)] Sucralfate [Carafate Oral Liquid 1 gm PO QID PRN #1200 ml 04/30/17 100 mg/ml] metFORMIN HCL [Metformin HCl] 500 mg PO BID #60 tablet 04/30/17 Departure - Departure Disposition: Home, Routine, Self-Care Clinical Impression: Atrial fibrillation, Palpitations Condition: Good Instructions: A-fib (Atrial Fibrillation) (ED), Heart Palpitations (ED) Additional Instructions: 1. Follow up with Dr. Jara this week for further evaluation. 2. Return to the emergency department for recurrence of symptoms, fever, chest pain, shortness of breath, or other worsening of condition or further concerns. Referrals: Lisa De La Rosa MD [Primary Care Provider] - As per Instructions Josué Jara MD [Medical Doctor] - As per Instructions Report Scribed for: Sudeep Cisneros Report Scribed by: Kristen Guillory Date of Report: 02/18/18 Time of Report: 20:52 Physician Review and Approval Statement: Portions of this note were transcribed by an ED scribe. I personally performed the history, physical exam, and medical decision making; and confirm the accuracy of the information in the transcribed note.
[2018-02-18 21:02] LABS: PLATELET COUNT 347 10^3/uL (150-400)
[2018-02-18 22:38] VITALS: BP 154/101
== END 2018-02-18 22:36 | disposition home or self-care (01) ==
DX: I48.91 Unspecified atrial fibrillation (principal)

== ENCOUNTER → 2018-02-21 | Outpatient (CLI) | payer OTHER | LOC: BHFA 15:15 | PROVIDERS: ATTEND Internal Medicine Cardiovascular Disease | DX: I48.91 Unspecified atrial fibrillation (principal); F41.9 Anxiety disorder, unspecified; R07.9 Chest pain, unspecified; R53.1 Weakness ==

== ENCOUNTER → 2018-02-27 | Day surgery (SDC) | payer OTHER ==
[~2018-02-27] MED LIST: ATROPINE SULFATE 1 MG/10 ML SYR IVP ONE; NS 1,000 ML IV ONE; PROPOFOL 200 MG/20 ML VIAL ONE
--- NOTE | 2018-02-27 12:52 | CPEKG ---
Heart Rate: 90 RR Interval: 667 QRSD Interval: 84 QT Interval: 404 QTC Interval: 495 QRS Page: -29 T Wave Page: 87 EKG Severity - ABNORMAL ECG - EKG Impression: ATRIAL FIBRILLATION EKG Impression: BORDERLINE LEFT AXIS DEVIATION EKG Impression: DIFFUSE REPOLARIZATION ABNORMALITY EKG Impression: BORDERLINE PROLONGED QT INTERVAL EKG Impression: COMPARED WITH 02/18/2018 QT INTERVAL IS LONGER Electronically Signed By: Tosin Duvall 27-Feb-2018 18:04:55
[2018-02-27 13:23] LABS: INR 1.69 (0.83-1.16)
--- NOTE | 2018-02-27 13:46 | PDANEPAE ---
ANE History of Present Illness cardioversion ANE Past Medical History - Cardiovascular History Hx Hypertension: Yes Hx Arrhythmias: Yes Hx Chest Pain: No Hx Coronary Artery / Peripheral Vascular Disease: No - Pulmonary History Hx Asthma/Reactive Airway Disease: No Hx Recent Upper Respiratory Infection: No Hx Oxygen in Use at Home: No Hx Sleep Apnea: No - Endocrine History Hx Diabetes: Yes - Neurological & Psychiatric Hx Hx Neurological and Psychiatric Disorders: Yes Neurological / Psychiatric History Comment: TIA 2 weeks ago Speech and facial - Chronic Pain History Chronic Pain: No ANE Review of Systems Review of systems is: negative Review of Systems: - Exercise capacity Exercise capacity: unable to assess ANE Patient History - Allergies Allergies/Adverse Reactions: Niacin Preparations Allergy (Intermediate, Verified 02/21/18 16:06) Rash Penicillins Allergy (Intermediate, Verified 02/21/18 16:06) Rash codeine phosphate [From Codeine Phosphate Soluble] Allergy (Mild, Verified 02/21 16:06) NAUSEA Sulfa (Sulfonamide Antibiotics) Allergy (Mild, Verified 02/21/18 16:06) SPACEY codeine phosphate Allergy (Unknown, Uncoded 02/10/18 16:29) NAUSEA - Home Medications Home medications: home medication list seen and reviewed Home Medications: Aspirin [Aspirin 81mg (*)] 81 mg PO DAILY 04/28/17 [Last Taken 02/27/18] Cholecalciferol (Vitamin D3) [Vitamin D3] 2,000 unit PO DAILY 04/28/17 [Last Taken 02/27/18] Dabigatran Etexilate Mesyl [Pradaxa 150 MG (*)] 150 mg PO BID 04/28/17 [Last Taken 02/27/18] Flecainide Acetate 75 mg PO BID 04/28/17 [Last Taken 02/27/18] Metoprolol Succinate Xr [Toprol Xl 25 mg (*)] 25 mg PO DAILY 04/28/17 [Last Taken 02/27/18] Multivitamins [Multivitamin (*)] 1 each PO DAILY 04/28/17 [Last Taken 02/27/18] Pravastatin Sodium [Pravachol] 2.5 mg PO HS 04/28/17 [Last Taken 02/26/18] Vit A/Vit C/Vit E/Zinc/Copper [Preservision Areds Softgel] 1 each PO BID [Last Taken 02/27/18] Alendronate Sodium [Fosamax 70 MG (*)] 70 mg PO TH@0700 02/27/18 [Last Taken ] Escitalopram Oxalate [Lexapro] 20 mg PO HS 02/27/18 [Last Taken 02/26/18] metFORMIN HCL [Glucophage 500 mg (*)] 500 mg PO BIDMEAL 02/27/18 [Last Taken 03/10 18:00] - NPO status NPO Status: no food or drink >8 hours - Anes Hx Anes Hx: no prior problems - Smoking Hx Smoking Status: Never smoked - Family Anes Hx Family Anes Hx: none ANE Labs/Vital Signs - Labs Result Diagrams: 02/27/18 12:57 - Vital Signs Vital Signs: reviewed preoperatively; see RN documention for details Height: 167.64 cm Weight: 46.3 kg ANE Physical Exam - Airway Neck exam: FROM Mallampati Score: Class 3 Mouth exam: normal dental/mouth exam - Pulmonary Pulmonary: no respiratory distress - Cardiovascular Cardiovascular: irregularly irregular - ASA Status ASA Status: III ANE Anesthesia Plan Total IV Anesthesia: Yes
--- NOTE | 2018-02-27 13:47 | POSTANESTH ---
Post Anesthetic Evaluation Cardiovascular Status: Similar to Pre-Op Cond Respiratory Status: Similar to Pre-op Cond. Level of Consciousness/Mental Status: Can Participate in Eval, Mildly Sleepy, Arousable Pain Control: Adequate, Prn Tx Ordered Nausea/Vomiting Control: Adequate, Prn Tx Ordered Complications Possibly Related to Anesthesia: None Noted
--- NOTE | 2018-02-27 13:58 | PDHPUP ---
History & Physical Update H&P update statement: This history and physical update is based on an assessment of the patient which was completed after admission or registration (within 24 hours), but prior to the surgery/procedure. H&P update: H&P reviewed & patient examined, no change in patient's condition since H&P completed
--- NOTE | 2018-02-27 14:22 | PDTEE1 ---
PHILLIP Cardioversion Procedure Procedure: electrical cardioversion Indications: atrial fibrillation Consent: signed and in chart Anticoagulation: other (Pradaxa) Procedural Details: Pads were placed in anterior-posterior position. PHILLIP probe was advanced and standard images obtained. There is no evidence of left atrial or left atrial appendage thrombus. Synchronized cardioversion attempt #1: 100J Results: normal sinus rhythm Conclusions: successful PHILLIP cardioversion Patient Problems: Problems Problem Status Onset Epigastric pain Acute Transient ischemic attack Acute
--- NOTE | 2018-02-27 14:38 | CPEKG ---
Heart Rate: 62 RR Interval: 968 P-R Interval: 204 QRSD Interval: 82 QT Interval: 436 QTC Interval: 443 P [place]: 52 QRS [place]: -40 T Wave [place]: 38 EKG Severity - ABNORMAL ECG - EKG Impression: SINUS RHYTHM EKG Impression: LEFT AXIS DEVIATION EKG Impression: NONSPECIFIC T ABNORMALITIES, ANT-LAT LEADS EKG Impression: COMPARED WITH 02/27/2018 AT 12:51 P.M., SINUS RHYTHM HAS BEEN RESTORED. QT EKG Impression: INTERVAL IS SHORTER Electronically Signed By: Tosin Duvall 27-Feb-2018 18:04:16
--- NOTE | 2018-02-27 16:49 | ECHO ---
[email or web address] [email or web address] [id number] Main: [phone] Fax: Transesophageal Echocardiography Name: SAPNA CAMPBELL MR#: [id number] Study Date: 02/27/2018 Study Time: 02:07 PM Date of : 1930 Age: 88 year(s) Height: ( ) Weight: ( ) BSA: Gender: Female Examination: PHILLIP Indication: afib; pre-cardioversion; r/o clot Image Quality: Contrast: Requested by: Ameya Acevedo Heart Rate: Rhythm: BP: / Procedure Staff Oceanography Teacher: Monserrat Mayes [facility] Reading Physician: Ameya Acevedo MD Requesting Provider: PHILLIP Exam Details Conclusions: The patient underwent cardioversion following the procedure. Measurements: Chambers Valvular Assessment AV/MV Valvular Assessment TV/PV Normal Normal Normal Name Value Range Name Value Range Name Value Range Additional Measurements: Findings: Left Atrial Appendage: No thrombus in left appendage. l1n (No Signature Object) Patient: SAPNA CAMPBELL Study Date: 02/27/2018 Page 1 of 1 02:07 PM [id number]
== END | disposition home or self-care (01) ==
LOC: FCATH 12:26
PROVIDERS: ATTEND Internal Medicine Cardiovascular Disease
PROC: B245ZZ4 Ultrasonography of Left Heart, Transesophageal (ICD-10-PCS; principal; 2018-02-27)
PROC: 5A2204Z Restoration of Cardiac Rhythm, Single (ICD-10-PCS; principal; 2018-02-27)
DX: I48.0 Paroxysmal atrial fibrillation (principal); F41.9 Anxiety disorder, unspecified; I11.9 Hypertensive heart disease without heart failure; E11.9 Type 2 diabetes mellitus without complications; F32.9 Major depressive disorder, single episode, unspecified; E78.5 Hyperlipidemia, unspecified; Z79.82 Long term (current) use of aspirin; Z79.01 Long term (current) use of anticoagulants; Z79.84 Long term (current) use of oral hypoglycemic drugs; Z86.73 Personal history of transient ischemic attack (TIA), and cerebral infarction without residual deficits; Z82.49 Family history of ischemic heart disease and other diseases of the circulatory system; Z88.0 Allergy status to penicillin; Z88.2 Allergy status to sulfonamides
CPT/HCPCS: J0461; J2704

== ENCOUNTER → 2018-03-11 | Outpatient (CLI) | payer OTHER | LOC: BHFA 14:30 | PROVIDERS: ATTEND Internal Medicine Cardiovascular Disease | DX: I48.91 Unspecified atrial fibrillation (principal); I11.9 Hypertensive heart disease without heart failure; F41.9 Anxiety disorder, unspecified ==

== ENCOUNTER → 2018-06-06 | Outpatient (CLI) | payer OTHER | LOC: FIMAGING 18:40 | PROVIDERS: ATTEND Family Medicine | DX: F03.90 Unspecified dementia, unspecified severity, without behavioral disturbance, psychotic disturbance, mood disturbance, and anxiety (principal); G31.9 Degenerative disease of nervous system, unspecified; Z86.73 Personal history of transient ischemic attack (TIA), and cerebral infarction without residual deficits ==

== ENCOUNTER → 2018-06-09 | Outpatient (CLI) | payer OTHER | LOC: BHFA 09:15 | PROVIDERS: ATTEND Internal Medicine | DX: I48.0 Paroxysmal atrial fibrillation (principal); I48.91 Unspecified atrial fibrillation ==

== ENCOUNTER → 2018-07-25 | Outpatient (CLI) | payer OTHER | LOC: BHFA 11:00 | PROVIDERS: ATTEND Internal Medicine Cardiovascular Disease | DX: I48.91 Unspecified atrial fibrillation (principal) ==

== ENCOUNTER → 2018-10-01 | Outpatient (CLI) | payer OTHER | END | disposition home or self-care (01) | LOC: FIMAGING 18:22 | PROVIDERS: ATTEND Physician Assistant | DX: M51.16 Intervertebral disc disorders with radiculopathy, lumbar region (principal); M48.061 Spinal stenosis, lumbar region without neurogenic claudication; M71.38 Other bursal cyst, other site ==